=== PATIENT | female | born 1975 | race Caucasian/White ===

== ENCOUNTER 2017-12-13 08:08 | Inpatient (IN) | payer SELFPAY ==
[2017-12-13] MEDS ORDERED: LEVALBUTEROL 1.25 MG/3 ML NEB ONE ×2 (08:45→10:06)
[2017-12-13 08:59] LABS: Absolute Lymphocytes (CBC) 1.6 K/uL (0.7-4.9); Absolute Monocytes 0.6 K/uL (0.1-1.3); Absolute Neutrophil 6.3 K/uL (1.8-8.0); Basophils % 1.3 % (0-1.3); Eosinophils % 1.7 % (0-4.4); Hematocrit 27.4 % (36.0-45.0); Lymphocytes % 18.2 % (15.3-44.8); MCH 20.8 pg (27.0-35.0); MCV 69.1 fL (80-100); MPV 9.1 fL (7.6-11.3); Monocytes % 6.5 % (3.3-12.3); RBC Red Blood Cell Count 3.97 M/uL (3.86-4.86)
[2017-12-13 09:03] LABS: Protime INR 0.94
[2017-12-13 09:10] LABS: Bicarbonate 23 mEq/L (21-31); Glucose Level 92 mg/dL (65-120); Lipase 24 U/L (22-51); Potassium 3.8 mEq/L (3.6-5.0); Sodium Level 136 mEq/L (135-145)
[2017-12-13 09:16] LABS: ALT/SGPT 13 IU/L (10-60); AST/SGOT 18 IU/L (10-42); Albumin 3.6 g/dL (3.2-5.5); Alkaline Phosphatase 51 IU/L (42-121); BUN Blood Urea Nitrogen 9 mg/dL (6-20); Bilirubin Direct < 0.1 mg/dL (0-0.2); Bilirubin Total 0.4 mg/dL (0.3-1.2); Glomerular Filtration Rate > 90 mL/min (=/>90); Protein, Total 6.7 g/dL (6.0-8.3)
[2017-12-13 09:17] LABS: Alcohol Serum/Plasma 38 mg/dl
--- NOTE | 2017-12-13 09:58 | RAD REPORT ---
EXAM DESCRIPTION: RAD - Chest Single View - 12/13/2017 9:13 am CLINICAL HISTORY: Shortness of breath COMPARISON: April 2016 TECHNIQUE: AP portable chest image was obtained 0908 hours . FINDINGS: Lungs are clear. Heart and vasculature are normal. No measurable pleural effusion and no p neumothorax. No gross bony abnormality seen. No acute aortic findings suspected. IMPRESSION: No acute cardiopulmonary process. No significant change from comparison.
--- NOTE | 2017-12-13 10:02 | RAD REPORT ---
EXAM DESCRIPTION: CT - Chest For Pe Angio - 12/13/2017 9:48 am CLINICAL HISTORY: Shortness of breath COMPARISON: Chest films same date TECHNIQUE: Dynamically enhanced 3 mm thick images of the chest were obtained during administration o f approximately 150mL Isovue 370 IV contrast. Coronal and oblique reconstruction images were generate d and reviewed. Exam utilizes a protocol to evaluate the pulmonary arterial tree. All CT scans are performed using dose optimization technique as appropriate and may include automated exposure control or mA/KV adjustment according to patient size. FINDINGS: No pulmonary emboli are identified. The aorta as imaged shows no acute or suspicious finding. No pericardial thickening or effusion. No infiltrate or mass in the lung parenchyma. No pleural effusion or pleural thickening. No mediastinal or hilar suspicious masses. No chest wall masses or abnormal axillary lymphadenopathy. IMPRESSION: No pulmonary emboli identified. No other significant or suspicious findings.
[2017-12-13] MEDS ORDERED: DEXAMETHASONE 10 MG/ML VIAL ONE (10:06)
[2017-12-13] MEDS ORDERED: CEFTRIAXONE/SWI 1gm 2 GM/20 ML SYR ONE (10:06)
[2017-12-13] MEDS ORDERED: Magnesium Sulfate 2gm IVPB 2 G/50 ML BAG IV ONE (10:06)
[2017-12-13] MEDS ORDERED: AZITHROMYCIN 500 MG/250 ML BAG IV SCH (10:15)
[2017-12-13 10:33] LABS: Blood Morphology Comment NOTED (NOT SEEN); Platelet Estimate ADEQ; Urine White Blood Cell Casts OK
[2017-12-13 10:34] LABS: Anisocytosis 2+; Hypochromasia 1+
[2017-12-13] MEDS ORDERED: ACETAMINOPHEN 500 MG TAB ONE (10:40)
[2017-12-13] MEDS ORDERED: ONDANSETRON 4 MG/2 ML VIAL ONE (11:03)
[2017-12-13] MEDS ORDERED: FENTANYL CITR 100 MCG/2 ML ONE (11:06)
--- NOTE | 2017-12-13 11:22 | ER ---
Nurse's Notes [facility] Name: Valery Garner Age: 42 yrs Sex: Female : 1975 Arrival Date: 12/13/2017 Time: 08:12 Bed 5 Private MD: Diagnosis: Acute Shortness of Breath;Cough;Bronchospasm Presentation: 12/13 08:37 Presenting complaint: Patient states: "I've been sick for 2 weeks, had 2 Rocephin jl7 shots, this morning was really short of breath, O2 was 88% so Dr. Houston made me come in. I've also been dizzy for 2 weeks.". Transition of care: patient was not received from another setting of care. Onset of symptoms was December 01, 2017. Care prior to arrival: None. 08:37 Method Of Arrival: Ambulatory jl7 08:37 Acuity: SANJAY 3 jl7 Triage Assessment: 09:00 General: Appears in no apparent distress. uncomfortable, Behavior is calm, cooperative, jl7 appropriate for age. Respiratory: Reports shortness of breath at rest on exertion since 2 weeks Onset: The symptoms/episode began/occurred 2 weeks ago, the patient has moderate shortness of breath. 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 - Social history:: Smoking status: Patient uses tobacco products, smokes one-half pack cigarettes per day. - Family history:: not pertinent. - Hospitalizations: : No recent hospitalization is reported. Screenin:56 Abuse screen: Denies threats or abuse. Denies injuries from another. Nutritional jl7 screening: No deficits noted. Tuberculosis screening: No symptoms or risk factors identified. Fall Risk IV access (20 points). Total Aparicio Fall Scale indicates No Risk (0-24 pts). Assessment: 08:56 General: Appears in no apparent distress. uncomfortable, Behavior is calm, cooperative, jl7 appropriate for age. Pain: Denies pain. Neuro: Level of Consciousness is awake, alert, obeys commands, Oriented to person, place, time, situation, Moves all extremities. Gait is steady, Speech is normal, Facial symmetry appears normal. Cardiovascular: Heart tones S1 S2 present Patient's skin is warm and dry. Rhythm is sinus rhythm. Respiratory: Airway is patent Respiratory effort is even, unlabored, shallow, Respiratory pattern is symmetrical, tachypnea Breath sounds are coarse bilaterally. GI: No signs and/or symptoms were reported involving the gastrointestinal system. : No signs and/or symptoms were reported regarding the genitourinary system. EENT: No signs and/or symptoms were reported regarding the EENT system. Derm: Skin is pink, warm \\T\\ dry. Musculoskeletal: No signs and/or symptoms reported regarding the musculoskeletal system. 10:00 Reassessment: No changes from previously documented assessment. Patient and/or family jl7 updated on plan of care and expected duration. Pain level reassessed. Patient is alert, oriented x 3, equal unlabored respirations, skin warm/dry/pink. 10:35 Reassessment: Pt c/o headache, provider notified, see MAR for orders. jl7 11:00 Reassessment: No changes from previously documented assessment. Pt remains short of jl7 breath at rest, provider notified. Pt c/o of nausea. Provider notified, see MAR for orders. 11:55 Reassessment: Patient and/or family updated on plan of care and expected duration. Pain jl7 level reassessed. Patient is alert, oriented x 3, equal unlabored respirations, skin warm/dry/pink. 12:32 Reassessment: Patient and/or family updated on plan of care and expected duration. Pain sv level reassessed. Patient is alert, oriented x 3, equal unlabored respirations, skin warm/dry/pink. c/o nausea and headache. Medication ordered. Vital Signs: 08:41 BP 132 / 98; Pulse 79; Resp 24 S; Pulse Ox 97% on R/A; Weight 71.67 kg (R); Height 5 jl7 ft. 3 in. (160.02 cm) (R); 08:55 Temp 98.3; jl7 09:14 BP 122 / 79; Pulse 76; Resp 20 S; Pulse Ox 100% on 2 lpm NC; jl7 10:32 BP 136 / 93; Pulse 97; Resp 20 S; Pulse Ox 100% on 2 lpm NC; jl7 11:24 BP 119 / 81; Pulse 97; Resp 18 S; Pulse Ox 100% on 2 lpm NC; jl7 11:56 BP 115 / 83; Pulse 80; Resp 20 S; Pulse Ox 100% on 2 lpm NC; jl7 08:41 Body Mass Index 27.99 (71.67 kg, 160.02 cm) jl7 ED Course: 08:12 Patient arrived in ED. mr 08:26 Bobo Shah MD is Attending Physician. wa 08:36 Madonna Andrews, MARY KATE is Primary Nurse. jl7 08:39 Triage completed. jl7 08:40 Initial lab(s) drawn, by co, sent to lab. Inserted saline lock: 20 gauge in right sv antecubital area, using aseptic technique. Blood collected. Flushed right antecubital with 5 ml normal saline. 08:41 Radiology exam delayed due to lab results not completed at this time. (BUN/Creatinine). nj 08:41 Arm band placed on right wrist. jl7 08:43 Radiology exam delayed due to IV insertion attempt and/or patient not having nj appropriate IV at this time. 08:56 Patient has correct armband on for positive identification. Placed in gown. Bed in low jl7 position. Call light in reach. Side rails up X 1. 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 Pulse ox on. NIBP on. 09:00 EKG done, by ED staff, reviewed by Bobo Shah MD. [facility] 09:13 XRAY CXR (1 view) In Process Unspecified. EDMS 09:21 LAB Add On Sent. sv 09:21 CBC Smear Scan Sent. sv 09:47 CT Chest For PE Angio In Process Unspecified. EDMS 09:47 CT completed. Patient tolerated procedure well. Patient moved back from CT. nj 11:20 Madi York DO is Hospitalizing Provider. wa 12:[address] j 12:22 CT completed. Patient tolerated procedure well. Patient moved back from CT. j 13:07 No provider procedures requiring assistance completed. Patient admitted, IV remains in jl7 place. Administered Medications: 08:54 Drug: Xopenex 1.25 mg Route: Inhalation; jl7 09:16 Follow up: Response: No adverse reaction jl7 10:09 Drug: Xopenex 1.25 mg Route: Inhalation; jl7 10:30 Follow up: Response: No adverse reaction jl7 10:10 Drug: Decadron - Dexamethasone 10 mg Route: IVP; Site: right antecubital; jl7 10:20 Follow up: Response: No adverse reaction jl7 10:13 Drug: Rocephin - (cefTRIAXone) 2 grams Route: IVPB; Infused Over: 4 mins; Site: right jl7 antecubital; 10:17 Follow up: IV Status: Completed infusion jl7 11:57 Follow up: Response: No adverse reaction jl7 10:20 Drug: Magnesium Sulfate 2 grams Route: IVPB; Infused Over: 2 hrs; Site: right jl7 antecubital; 11:58 Follow up: Response: No adverse reaction; IV Status: Completed infusion jl7 10:41 Drug: Zithromax 500 mg Route: IVPB; Infused Over: 1 hrs; Site: right antecubital; jl7 11:57 Follow up: Response: No adverse reaction; IV Status: Completed infusion jl7 10:41 Drug: Tylenol 1000 mg Route: PO; jl7 11:59 Follow up: Response: No adverse reaction; Pain is decreased jl7 11:04 Drug: Zofran 4 mg Route: IVP; Site: right antecubital; jl7 11:59 Follow up: Response: No adverse reaction; Nausea is decreased jl7 11:08 Drug: fentaNYL (PF) 50 mcg Route: IVP; Site: right antecubital; jl7 11:59 Follow up: Response: No adverse reaction jl7 12:34 Drug: NS 0.9% 500 ml Route: IV; Rate: bolus; Site: right antecubital; sv 13:00 Follow up: IV Status: Completed infusion jl7 12:35 Drug: Phenergan 12.5 mg Route: IVP; Site: right antecubital; sv 12:56 Follow up: Response: No adverse reaction jl7 13:00 Follow up: Response: No adverse reaction jl7 12:56 Drug: [place] 5 mg-325 mg 1 tabs Route: PO; jl7 13:00 Follow up: Response: Other; administered prior to admission jl7 Outcome: 11:21 Decision to Hospitalize by Provider. wa 13:07 Admitted to Med/surg accompanied by tech, via wheelchair, room 413, with chart, Report jl7 called to Zina Kaufman, Nurse 13:07 Condition: stable 13:07 Discharge instructions given to patient, Instructed on the need for admit, Demonstrated understanding of instructions. 13:09 Patient left the ED. jl7 Signatures: Dispatcher [employer] Edith Artis RN RN sv Rivera, Maria mr Garcia, Margi león Joseph Carty Maria [facility] Madonna Andrews RN RN jl7 Bobo Shah MD MD wa
--- NOTE | 2017-12-13 11:22 | EDPHYS ---
Physician Documentation [facility] Name: Valery Garner Age: 42 yrs Sex: Female : 1975 Arrival Date: 12/13/2017 Time: 08:12 Bed 5 Private MD: ED Physician Bobo Shah HPI: 12/13 09:45 This 42 yrs old Female presents to ER via Ambulatory with complaints of wa Breathing Difficulty. 09:45 The patient has shortness of breath at rest, "I have had the crud for 2 weeks now I wa can't breath" States cough with sputum and congestion in the chest x 2 weeks. today with difficulty in breathing at work. Sat's 88 %. admits to painful respirations. denies having these same symptoms in the past. smokes 5-6 cigs a day. denies fever. Onset: The symptoms/episode began/occurred today. Duration: The symptoms are continuous, and are steadily getting worse. The patient's shortness of breath is aggravated by coughing, is alleviated by nothing. Associated signs and symptoms: Pertinent positives: chest pain, productive cough, Pertinent negatives: dizziness, fever, vomiting. Severity of symptoms: At their worst the symptoms were severe in the emergency department the symptoms are unchanged. The patient has not experienced similar symptoms in the past. The patient has not recently seen a physician. 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 - Social history:: Smoking status: Patient uses tobacco products, smokes one-half pack cigarettes per day. - Family history:: not pertinent. - Hospitalizations: : No recent hospitalization is reported. ROS: 09:56 Constitutional: Negative for fever, chills, and weight loss, Eyes: Negative for injury, wa pain, redness, and discharge, ENT: Negative for injury, pain, and discharge, Neck: Negative for injury, pain, and swelling, Cardiovascular: Negative for chest pain, palpitations, and edema, Abdomen/GI: Negative for abdominal pain, nausea, vomiting, diarrhea, and constipation, Back: Negative for injury and pain, : Negative for injury, bleeding, discharge, and swelling, MS/Extremity: Negative for injury and deformity, Skin: Negative for injury, rash, and discoloration, Neuro: Negative for headache, weakness, numbness, tingling, and seizure, Psych: Negative for depression, anxiety, suicide ideation, homicidal ideation, and hallucinations. 09:56 Respiratory: Positive for cough, with yellow sputum, shortness of breath, Negative for hemoptysis, orthopnea. 09:56 All other systems are negative. Exam: 09:58 Head/Face: Normocephalic, atraumatic. Eyes: Pupils equal round and reactive to light, wa extra-ocular motions intact. Lids and lashes normal. Conjunctiva and sclera are non-icteric and not injected. Cornea within normal limits. Periorbital areas with no swelling, redness, or edema. ENT: Nares patent. No nasal discharge, no septal abnormalities noted. Tympanic membranes are normal and external auditory canals are clear. Oropharynx with no redness, swelling, or masses, exudates, or evidence of obstruction, uvula midline. Mucous membranes moist. Neck: Trachea midline, no thyromegaly or masses palpated, and no cervical lymphadenopathy. Supple, full range of motion without nuchal rigidity, or vertebral point tenderness. No Meningismus. Chest/axilla: Normal chest wall appearance and motion. Nontender with no deformity. No lesions are appreciated. Cardiovascular: Regular rate and rhythm with a normal S1 and S2. No gallops, murmurs, or rubs. Normal PMI, no JVD. No pulse deficits. Abdomen/GI: Soft, non-tender, with normal bowel sounds. No distension or tympany. No guarding or rebound. No evidence of tenderness throughout. Back: No spinal tenderness. No costovertebral tenderness. Full range of motion. Skin: Warm, dry with normal turgor. Normal color with no rashes, no lesions, and no evidence of cellulitis. MS/ Extremity: Pulses equal, no cyanosis. Neurovascular intact. Full, normal range of motion. Neuro: Awake and alert, GCS 15, oriented to person, place, time, and situation. Cranial nerves II-XII grossly intact. Motor strength 5/5 in all extremities. Sensory grossly intact. Cerebellar exam normal. Normal gait. Psych: Awake, alert, with orientation to person, place and time. Behavior, mood, and affect are within normal limits. 09:58 Constitutional: The patient appears alert, visibly dyspneic 09:58 Respiratory: moderate respiratory distress is noted, Respirations: labored breathing, that is moderate, accessory muscle usage, that is moderate, Breath sounds: scattered coarseness bilaterally, Respiratory rate: elevated Vital Signs: 08:41 BP 132 / 98; Pulse 79; Resp 24 S; Pulse Ox 97% on R/A; Weight 71.67 kg (R); Height 5 jl7 ft. 3 in. (160.02 cm) (R); 08:55 Temp 98.3; jl7 09:14 BP 122 / 79; Pulse 76; Resp 20 S; Pulse Ox 100% on 2 lpm NC; jl7 10:32 BP 136 / 93; Pulse 97; Resp 20 S; Pulse Ox 100% on 2 lpm NC; jl7 11:24 BP 119 / 81; Pulse 97; Resp 18 S; Pulse Ox 100% on 2 lpm NC; jl7 11:56 BP 115 / 83; Pulse 80; Resp 20 S; Pulse Ox 100% on 2 lpm NC; jl7 08:41 Body Mass Index 27.99 (71.67 kg, 160.02 cm) jl7 MDM: 08:26 Patient medically screened. id 10:00 Differential diagnosis: asthma, Bronchitis Chronic Obstructive Pulmonary Disease id pneumonia, pulmonary edema, Pulmonary Embolism reactive airway disease, Unstable Angina. 10:01 Data reviewed: vital signs, nurses notes, lab test result(s), EKG, radiologic studies. id Test interpretation: by ED physician or midlevel provider: labs noted for anemia. CXR: wnl. no infiltrate. EKG: HR 73. wnl. no acute concern for ischemia. ED course: improving at 1000 Hrs: still mildly dyspneic. will give another dose of xopenex. will give MgSO4 IV, decadron and abx. awaiting CT scan results. 10:09 Test interpretation: by ED physician or midlevel provider: CT chest: no acute process. id Special discussion: 1010 hrs: work up essentially negative. will treat as reactive airway dz vs. COPD vs bronchitis. dispo will hinge on reassessment findings.. 11:17 ED course: 1115 hrs: improving. still SOB at rest. will admit for Q4 hr nebs and wa further pulm eval. 12/13 08:39 Order name: BMP; Complete Time: 09:43 id 12/13 08:39 Order name: BNP; Complete Time: 09:43 id 12/13 08:39 Order name: CBC with Diff id 12/13 08:39 Order name: Hepatic Function; Complete Time: 09:43 id 12/13 08:39 Order name: Lipase; Complete Time: 09:43 id 12/13 08:39 Order name: Magnesium; Complete Time: 09:43 id 12/13 08:39 Order name: PT-INR; Complete Time: 09:43 id 12/13 08:39 Order name: Troponin (emerg Dept Use Only); Complete Time: 09:43 id 12/13 08:52 Order name: LAB Add On sv 12/13 08:54 Order name: Alcohol Serum/Plasma; Complete Time: 09:43 [facility] 12/13 09:06 Order name: CBC Smear Scan [facility] 12/13 13:00 Order name: Transferrin Sat/Iron Binding [facility] 12/13 13:00 Order name: Ferritin [facility] 12/13 13:00 Order name: Vitamin B12 Level [facility] 12/13 08:39 Order name: XRAY CXR (1 view); Complete Time: 10:07 id 12/13 08:39 Order name: CT Chest For PE Angio; Complete Time: 10:07 id 12/13 08:39 Order name: EKG; Complete Time: 08:39 id 12/13 12:39 Order name: CT [facility] 12/13 08:39 Order name: Cardiac monitoring; Complete Time: 09:15 id 12/13 08:39 Order name: EKG - Nurse/Tech; Complete Time: 09:00 id 12/13 08:39 Order name: IV Saline Lock; Complete Time: 08:52 id 12/13 08:39 Order name: Labs collected and sent; Complete Time: 08:52 id 12/13 08:39 Order name: O2 Per Protocol; Complete Time: 08:52 id 12/13 08:39 Order name: O2 Sat Monitoring; Complete Time: 08:52 id 12/13 09:56 Order name: Diet Regular; Complete Time: 09:56 iw Administered Medications: 08:54 Drug: Xopenex 1.25 mg Route: Inhalation; jl7 09:16 Follow up: Response: No adverse reaction jl7 10:09 Drug: Xopenex 1.25 mg Route: Inhalation; jl7 10:30 Follow up: Response: No adverse reaction jl7 10:10 Drug: Decadron - Dexamethasone 10 mg Route: IVP; Site: right antecubital; jl7 10:20 Follow up: Response: No adverse reaction jl7 10:13 Drug: Rocephin - (cefTRIAXone) 2 grams Route: IVPB; Infused Over: 4 mins; Site: right jl7 antecubital; 10:17 Follow up: IV Status: Completed infusion jl7 11:57 Follow up: Response: No adverse reaction jl7 10:20 Drug: Magnesium Sulfate 2 grams Route: IVPB; Infused Over: 2 hrs; Site: right jl7 antecubital; 11:58 Follow up: Response: No adverse reaction; IV Status: Completed infusion jl7 10:41 Drug: Zithromax 500 mg Route: IVPB; Infused Over: 1 hrs; Site: right antecubital; jl7 11:57 Follow up: Response: No adverse reaction; IV Status: Completed infusion jl7 10:41 Drug: Tylenol 1000 mg Route: PO; jl7 11:59 Follow up: Response: No adverse reaction; Pain is decreased jl7 11:04 Drug: Zofran 4 mg Route: IVP; Site: right antecubital; jl7 11:59 Follow up: Response: No adverse reaction; Nausea is decreased jl7 11:08 Drug: fentaNYL (PF) 50 mcg Route: IVP; Site: right antecubital; jl7 11:59 Follow up: Response: No adverse reaction jl7 12:34 Drug: NS 0.9% 500 ml Route: IV; Rate: bolus; Site: right antecubital; sv 13:00 Follow up: IV Status: Completed infusion jl7 12:35 Drug: Phenergan 12.5 mg Route: IVP; Site: right antecubital; sv 12:56 Follow up: Response: No adverse reaction jl7 13:00 Follow up: Response: No adverse reaction jl7 12:56 Drug: [place] 5 mg-325 mg 1 tabs Route: PO; jl7 13:00 Follow up: Response: Other; administered prior to admission jl7 Disposition: 11:19 Critical Care:. id Disposition: 12/13/17 11:21 Hospitalization ordered by Madi York for Observation. Preliminary diagnosis are Acute Shortness of Breath, Cough, Bronchospasm. - Bed requested for Telemetry/MedSurg (observation). - Status is Observation. jl7 - Condition is Stable. - Problem is new. - Symptoms have improved. UTI on Admission? No Critical care time excluding procedures: 11:19 Critical care time: Bedside Care: 20 minutes, Consultation: 5 minutes, Family wa Intervention: 5 minutes. Total time: 30 minutes Signatures: Dispatcher [employer] Edith Artis RN RN sv Leal, Jahala, RN RN jl7 Bobo Shah MD MD id Jeovanny Stone [email or web address]
[2017-12-13] MEDS ORDERED: IPRATROPIUM BROM 0.5MG/2.5ML NEB PRN (11:48)
[2017-12-13] MEDS ORDERED: ALBUTEROL 2.5 MG/3 ML NEB SOL NEB PRN (11:48)
[2017-12-13] MEDS ORDERED: LORazepam 2 MG/ML VIAL IV PRN (11:48)
[2017-12-13] MEDS ORDERED: MECLIZINE HCL 12.5 MG TAB PO PRN (11:48)
[2017-12-13] MEDS ORDERED: ONDANSETRON 4 MG/2 ML VIAL IV PRN (11:48)
[2017-12-13] MEDS ORDERED: HYDROCODONE/APAP 5/325 MG TAB ONE (12:28)
[2017-12-13] MEDS ORDERED: NA CHLORIDE 0.9% 500 ML ONE (12:28)
[2017-12-13] MEDS ORDERED: PROMETHAZINE 25 MG/ML VIAL ONE (12:32)
--- NOTE | 2017-12-13 12:38 | RAD REPORT ---
EXAM DESCRIPTION: CT - Head Brain Wo Cont - 12/13/2017 12:22 pm CLINICAL HISTORY: Weakness, dizziness, syncope, CT PE study approximately 2 hours earlier COMPARISON: CT head April 2016 TECHNIQUE: Axial 5 mm thick images of the head were obtained without IV contrast. All CT scans are performed using dose optimization technique as appropriate and may include automated exposure control or mA/KV adjustment according to patient size. FINDINGS: No intracranial hemorrhage, mass, edema or shift of mid-line structures. No acute infarcti on changes seen. No abnormal extra-axial fluid collections. Ventricles are normal. Arterial and physi ologic calcifications are present. Mastoid air cells and visualized portions of the paranasal sinuses are clear. No acute bony findings. IMPRESSION: Negative non-contrast CT head examination for acute finding. No significant change from comparison.
[2017-12-13 13:00] LABS: Ferritin 2.2 ng/ml (11.0-306.8); Transferrin 366 mg/dL (192-382)
[2017-12-13 13:19] LABS: Iron < 7.0 ug/dL (28-170)
--- NOTE | 2017-12-13 13:42 | P.HP ---
Certification for Inpatient Patient admitted to: Observation With expected LOS: <2 Midnights Patient will require the following post-hospital care: None Practitioner: I am a practitioner with admitting privileges, knowledge of patient current condition, hospital course, and medical plan of care. Services: Services provided to patient in accordance with Admission requirements found in Title 42 Section 412.3 of the Code of Federal Regulations Patient History Date of Service: 12/13/17 Primary Care Provider: HANSEL Still Reason for admission: Dizziness, cough, congestion and shortness of breath History of Present Illness: 42-year-old female present emergency room with multiple complaints including dizziness, cough and congestion and shortness of breath. The patient reports that she has been having dizziness over the past 2 weeks. She also reports cough and congestion for the past week. Last week she went to see her PCP. She received 2 doses of Rocephin and IM steroids due to possible bronchitis. She did not improve. She eventually got antibiotics-Augmentin as an outpatient. Since that time she has been having increasing shortness of breath. She reports some dizziness with pain to the left ear. She had some mild nausea. She denies any vomiting. No diarrhea as noted. Some constipation noted. Patient reports a history of anemia, attention deficit disorder and insomnia. She admits to tobacco and alcohol abuse. In the ER the patient was evaluated. The patient was given multiple nebulized treatments with IV steroids. Initial white count 8.8, hemoglobin 8.3. Electrolytes appeared unremarkable. Alcohol level was at 38. CT angiogram showed no pulmonary embolism or infection. Due to the nature the findings and persistent shortness of breath the patient was admitted for observation. When I evaluated the patient in the ER, she appeared dehydrated. She did not appear in any significant respiratory distress. Patient was slightly anxious. Allergies acetaminophen [From [facility]] Allergy (Severe, Verified 04/18/16 19:18) chest pain hydrocodone [From [facility]] Allergy (Severe, Verified 04/18/16 19:18) chest pain morphine Allergy (Severe, Verified 04/18/16 19:17) chest pain No Known Allergies Allergy (Uncoded 12/13/17 13:12) Unknown Home medications list reviewed: Yes Home Medications: Dextroamphetamine/Amphetamine [Adderall 20 mg Tablet] 20 mg PO TID 04/18/16 Alprazolam [Alprazolam] 1 tab PO BEDTIME 12/13/17 - Past Medical/Surgical History Diabetic: No -: Anemia, iron deficiency -: Anxiety disorder -: Tobacco abuse -: Alcohol abuse -: History gastric bypass -: Attention deficit disorder -: Insomnia -: Gastric bypass -: Breast reduction -: C-sections x2 -: Cholecystectomy -: Repair for intussipation and volvulus -: Kandice pereira Psychosocial/ Personal History: The patient is . She has 2 children. 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 - Family History Family History: Reviewed- Non-Contributory - Social History Smoking Status: Light Tobacco smoker (1-9 cigarettes/day) Counseled patient to stop smoking for: less than 10 minutes Smoking therapy provided: Yes Patient receptive to therapy: Yes Alcohol use: Yes CD- Drugs: No Caffeine use: Yes Place of Residence: Home Review of Systems General: Weakness, Malaise, As per HPI Eyes: Unremarkable ENT: Ear Pain, Nose Congestion, As per HPI Respiratory: Shortness of Breath, Wheezing, As per HPI Cardiovascular: Light Headedness, As per HPI Gastrointestinal: Nausea, Constipation, As per HPI Genitourinary: Unremarkable Musculoskeletal: Unremarkable Integumentary: Unremarkable Neurological: As per HPI Lymphatics: Unremarkable Physical Examination - Vital Signs Temperature: 98.3 F Blood Pressure: 115/83 Pulse: 80 Respirations: 20 - Physical Exam General: Alert, In no apparent distress, Oriented x3, Cooperative, Other ( Increased anxiety noted) HEENT: Atraumatic, Normocephalic, PERRLA, Other (Dry mucous membranes) Neck: Supple, No Thyromegaly Respiratory: Expiratory wheezes (Minimal crackles to the bases) Cardiovascular: Normal pulses, Regular rate/rhythm Gastrointestinal: Normal bowel sounds, Soft and benign, Non-distended, No ascites, No tenderness, No masses, No rebound, No guarding Musculoskeletal: No contractures, No erythema, No tenderness, No warmth Integumentary: No tenderness/swelling, No erythema, No warmth, No cyanosis Neurological: Normal speech, Normal strength at 5/5 x4 extr, Normal tone, Normal affect Lymphatics: No axilla or inguinal lymphadenopathy - Studies Laboratory Data (last 24 hrs) 12/13/17 08:45: PT 11.1, INR 0.94 12/13/17 08:45: WBC 8.8, Hgb 8.3 L, Hct 27.4 L, Plt Count 238 12/13/17 08:45: B-Natriuretic Peptide 32 12/13/17 08:45: Sodium 136, Potassium 3.8, BUN 9, Creatinine 0.55, Glucose 92, Magnesium 2.0, Total Bilirubin 0.4, AST 18, ALT 13, Alkaline Phosphatase 51, Lipase 24 Assessment and Plan - Problems (Diagnosis) (1) Shortness of breath Current Visit: Yes Status: Acute Plan: Shortness of breath likely related to underlying COPD with bronchitis. Possible with atypical infection. Will start Zithromax. Will continue with IV steroids and COPD medication. Tobacco cessation will be addressed in detail. Sputum culture obtained. Alcohol level was elevated. Will need to further address alcohol and tobacco cessation. Will check urine drug screen. Patient with anemia. Will replace with iron and B12 supplementation. (2) COPD (chronic obstructive pulmonary disease) Current Visit: Yes Status: Acute Plan: Patient likely has underlying COPD due to history of tobacco use. Tobacco cessation addressed. Will continue with COPD treatment. Patient likely with underlying atypical infection. Will provide Zithromax. Qualifiers: COPD type: COPD with acute exacerbation Qualified Code(s): J44.1 - Chronic obstructive pulmonary disease with (acute) exacerbation (3) Alcohol abuse Current Visit: Yes Status: Chronic Plan: Alcohol level elevated. Patient admits to alcohol abuse. Will teach on cessation. Will check urine drug screen (4) Tobacco abuse Current Visit: Yes Status: Chronic Plan: Tobacco cessation addressed in detail (5) Anxiety Current Visit: Yes Status: Acute Plan: Patient with increased anxiety. She is taking alprazolam as an outpatient. This should be weaned off as an outpatient over time. Patient may require psychiatric evaluation as an outpatient. (6) Anemia Onset Date: 04/19/16 Current Visit: No Status: Chronic Plan: Patient with chronic iron deficiency and B12 anemia. Will start iron supplementation and B12 supplementation. Patient with history of gastric bypass. Will start PPI b.i.d.. Will monitor hemoglobin closely. No need to transfuse unless hemoglobin below 7.0. Qualifiers: Anemia type: iron deficiency Iron deficiency anemia type: inadequate dietary iron intake Qualified Code(s): D50.8 - Other iron deficiency anemias (7) Dizziness Onset Date: 04/19/16 Current Visit: No Status: Acute Plan: Dizziness likely related to dehydration, alcohol abuse and anemia. Will continue with IV fluids. (8) Dehydration Current Visit: Yes Status: Acute Plan: Continue with IV fluids. Discharge Plan: Home Plan to discharge in: 24 Hours - Advance Directives Does patient have a Living Will: No Does patient have a Durable POA for Healthcare: No - Code Status/Comfort Care Code Status Assessed: Yes Time Spent Managing Pts Care (In Minutes): 55
[2017-12-13] MEDS: NA CHLORIDE 0.9% 1,000 ML IV SCH ×2 (13:49→22:00)
[2017-12-13 14:24] VITALS: BMI 28.0
[2017-12-13] MEDS ORDERED: CYANOCOBALAMIN 1000MCG/ML INJ IM SCH (15:00)
[2017-12-13 16:13] LABS: Barbiturates NEGATIVE; Benzodiazepines NEGATIVE; Cocaine NEGATIVE; METHAMPHETAM POSITIVE; Opiates NEGATIVE; Phencyclidine NEGATIVE; THC Cannibis NEGATIVE
[2017-12-13 16:26] LABS: Urine Appearance CLEAR; Urine Bilirubin NEGATIVE (NEG); Urine Blood 3+ (NEG); Urine Color YELLOW; Urine Glucose NEGATIVE (NEG); Urine Protein NEGATIVE (NEG); Urine Specific Gravity >=1.030 (1.005-1.030)
[2017-12-13 16:29] LABS: Urine Microscopic Reflex ORDER UMIC
[2017-12-13 16:31] LABS: Specific Gravity >= 1.030 (1.005-1.030)
[2017-12-13] MEDS: TRAMADOL HCL 50 MG TAB PO PRN ×2 (16:56→23:12)
[2017-12-13] MEDS: METHYLPREDNISOLONE 40 MG INJ IV SCH (16:56)
[2017-12-13] MEDS: ENOXAPARIN 40 MG/0.4 ML SQ SCH (16:57)
[2017-12-13] MEDS: PANTOPRAZOLE 40MG TABLET PO SCH (16:57)
[2017-12-13 17:12] LABS: Urine Bacteria NONE SEEN /HPF (<20); Urine Culture Reflex Order NOT NEEDED; Urine RBC <5 /HPF (NONE SEEN)
[2017-12-13] MEDS: SOD FERRIC GLUC COMPLX/SUCROSE 125 MG in NA CHLORIDE 0.9% 100 ML IV SCH (18:11)
[2017-12-13] MEDS: ARFORMOTEROL TARTRATE 15 MCG/2 ML VIAL.NEB NEB SCH ×2 (18:20→19:39)
[2017-12-13] MEDS ORDERED: ACETAMINOPHEN 500 MG TAB PO ONE (19:18)
[2017-12-13] MEDS: ALPRAZOLAM 1 MG TABLET PO SCH (19:44)
[2017-12-14] MEDS: METHYLPREDNISOLONE 40 MG INJ IV SCH ×3 (01:26→16:52)
[2017-12-14] MEDS: NA CHLORIDE 0.9% 1,000 ML IV SCH ×3 (01:35→17:34)
[2017-12-14] MEDS: KETOROLAC 30 MG/ML INJ IV PRN ×3 (02:02→18:24)
[2017-12-14 07:12] LABS: Absolute Lymphocytes (CBC) 0.6 K/uL (0.7-4.9); Absolute Monocytes 0.3 K/uL (0.1-1.3); Absolute Neutrophil 14.1 K/uL (1.8-8.0); Basophils % 0.1 % (0-1.3); Hematocrit 25.2 % (36.0-45.0); Lymphocytes % 3.9 % (15.3-44.8); MCH 20.7 pg (27.0-35.0); MPV 9.8 fL (7.6-11.3); Monocytes % 1.8 % (3.3-12.3); RBC Red Blood Cell Count 3.66 M/uL (3.86-4.86)
[2017-12-14] MEDS: ARFORMOTEROL TARTRATE 15 MCG/2 ML VIAL.NEB NEB SCH ×2 (07:13→19:58)
--- NOTE | 2017-12-14 07:19 | RAD REPORT ---
EXAM DESCRIPTION: RAD - Chest Pa And Lat (2 Views) - 12/14/2017 6:40 am CLINICAL HISTORY: Bronchitis, cough, shortness of breath COMPARISON: December 13 TECHNIQUE: PA and lateral views of the chest were obtained. FINDINGS: The lungs are clear. Heart size is normal and central vasculature is within normal limit s. No pleural effusion or pneumothorax seen. No acute bony finding noted. No aortic abnormality. IMPRESSION: No acute cardiopulmonary process. No new or progressive finding from comparison.
[2017-12-14 07:26] LABS: BUN Blood Urea Nitrogen 7 mg/dL (6-20); Bicarbonate 23 mEq/L (21-31); Glomerular Filtration Rate > 90 mL/min (=/>90); Glucose Level 130 mg/dL (65-120); Magnesium 2.5 mg/dL (1.8-2.5); Potassium 4.6 mEq/L (3.6-5.0); Sodium Level 137 mEq/L (135-145); Thyroid Stimulating Hormone 0.32 uIU/mL (0.34-5.60)
[2017-12-14] MEDS: PANTOPRAZOLE 40MG TABLET PO SCH ×2 (08:09→16:44)
[2017-12-14] MEDS: THIAMINE HCL 100 MG TABLET PO SCH (08:09)
[2017-12-14] MEDS: FOLIC ACID 1 MG TABLET PO SCH (08:09)
[2017-12-14] MEDS: AZITHROMYCIN IV 250 MG in NA CHLORIDE 0.9% 250 ML IVPB SCH (08:10)
[2017-12-14] MEDS ORDERED: CEFTRIAXONE 1 GM/NS 50 ML 1 GM/50 ML BAG IV SCH (09:00)
[2017-12-14] MEDS ORDERED: CEFTRIAXONE/SWI 1gm 1 GM/10 ML SYR IV SCH (09:00)
[2017-12-14 10:01] LABS: Blood Morphology Comment NOTED (NOT SEEN); Hypochromasia 1+; Platelet Estimate ADEQ; Urine White Blood Cell Casts OK
[2017-12-14] MEDS ORDERED: BENZONATATE 100 MG CAP PO PRN (10:08)
[2017-12-14] MEDS: POLYETHYL GLY 3350 17 GM/DOSE PO SCH (10:28)
[2017-12-14] MEDS: TRAMADOL HCL 50 MG TAB PO PRN (11:32)
[2017-12-14 12:32] LABS: Hematocrit 26.9 % (36.0-45.0)
[2017-12-14] MEDS ORDERED: MORPHINE 4 MG/ML SYR IV ONE (13:11)
[2017-12-14] MEDS ORDERED: ALPRAZOLAM 1 MG TABLET PO ONE (13:53)
--- NOTE | 2017-12-14 14:03 | PN ---
Subjective: The patient is seen and examined. Chart reviewed and case discussed with RN. The patie nt states that she is still very short of breath, fatigued, has no energy. Denies any blood in her s tool. Case discussed with Dr. Del Toro. No intervention at this time. Review of Systems: Negative except as above. Medications: Reviewed. Physical Examination: Vital Signs: Temperature 97.8, heart rate 80, blood pressure 113/74, respirations 16, and O2 97% on room air. General: Awake, alert, oriented x3, not in any acute distress. Slightly ill-appearing female. CV: S1 and S2. No murmurs. Peripheral pulses present bilaterally. Respiratory: Clear to auscultation bilaterally. No wheezing. Gastrointestinal: Abdomen is soft, nontender, nondistended. Positive bowel sounds. Extremities: No clubbing, cyanosis, edema. Neurologic: Nonfocal. Laboratory Data: Sodium 137, potassium 4.6, chloride 110, CO2 of 23, BUN 7, creatinine 0.47, glucose 130, calcium 8.8, magnesium 2.5. WBC 15, H and H 7.6 and 25.2, platelets 210, neutrophils 94%. Assessment And Plan: A 42-year-old female with: 1.Acute dyspnea actually related to chronic obstructive pulmonary disease with bronchitis, possible atypical infection. The patient will continue with Zithromax, IV steroids and breathing treatments. 2.Chronic obstructive pulmonary disease with acute exacerbation. We will continue steroids and nebu lizer treatments. Counseled regarding smoking. 3.Nicotine dependence with cigarette smoking, counseled. 4.Alcohol abuse. Alcohol level elevated. We will continue with education regarding long-term side effects. UDS positive for amphetamines. The patient does take Adderall. 5.Generalized anxiety disorder. The patient will require psych evaluation as an outpatient. Sugges t weaning off alprazolam. 6.Iron deficiency anemia. We will continue with IV iron infusion. We will repeat H and H and check Hemoccult if less than 7, transfuse. 7.Dizziness secondary to anemia. 8.Acute dehydration. Continue IV fluids. 9.History of peptic ulcer disease with previous history of GI bleeds. 10.Arrhythmia. Cardiology on the case. We will monitor electrolytes. Echocardiogram has been orde red. 11.Gastrointestinal and deep venous thrombosis prophylaxis, PPI and SCDs. SA/MODL Voice ID: [id number] Report ID: [id number]
[2017-12-14] MEDS ORDERED: MAGNESIUM CITRATE 300 ML BOT PO SCH (16:00)
[2017-12-14] MEDS ORDERED: GOLYTELY 4000 ML PO SCH (16:00)
[2017-12-14 16:01] LABS: CKMB Creatine Kinase MB 1.1 ng/ml (0.3-4.0)
[2017-12-14] MEDS: ENOXAPARIN 40 MG/0.4 ML SQ SCH (16:49)
[2017-12-14] MEDS: SOD FERRIC GLUC COMPLX/SUCROSE 125 MG in NA CHLORIDE 0.9% 100 ML IV SCH (17:19)
[2017-12-14] MEDS ORDERED: SODIUM CHLORIDE 0.9% 10ML INJ IV PRN (17:44)
--- NOTE | 2017-12-14 18:27 | CON ---
Date of Consultation: 12/14/2017 The patient is admitted to Dr. Spangler's service on 2d018. I saw the patient on 12/14/2017. Reason For Consultation: Shortness of breath. History Of Present Illness: Ms. Garenr is a 42-year-old woman, who has no past cardiac history. Marco A carcamo has had a history of peptic ulcer disease with anemia before, treated with IV iron at [facility]. That was a few years ago. Recently, over the last 3 months she has noticed some mid epigastric discomfort. Did become short of breath. Has had some cough for 2 weeks and came int o the hospital, was found to have a hemoglobin of 7.6. Her white count was 15,000. She had a negati ve workup including chest x-ray, EKG, CT angiogram, and CT of her head. Her CPKs, MBs, and troponin were negative. Past Medical History: Positive for anxiety, history of peptic ulcer disease, history of gastric bypa ss, history of breast augmentation, history of stomach tummy tuck and history of . Allergies: NONE. Medications: At home include Xanax and Adderall. Review of Systems: Negative. Social History: Negative for tobacco. 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 She was afebrile. HEENT: Negative. Neck: Supple. No bruit. Chest: Clear. Cardiac: Normal. Abdomen: Benign. Extremities: Revealed no clubbing, cyanosis, or edema. Diagnostic Data: As stated earlier. Echocardiogram, which was done yesterday was normal. Impression And Plan: 1.Dyspnea on exertion secondary to anemia. 2.Possible peptic ulcer disease with bleeding with a hemoglobin of 7.6. White count elevation is se condary to anemia. 3.Anxiety. 4.Ms. Garner does not need a cardiac workup. She is cleared to undergo endoscopy if that is what t he plan is. She needs to be probably transfused and placed on proton pump inhibitors. She can go ho me whenever it is okay with Dr. Spangler. The case was discussed with Dr. Spangler. NELI/MONA Voice ID: [id number] Report ID: [id number]
[2017-12-14] MEDS: chlordiazePOXIDE HCl 5 MG CAP PO SCH (20:44)
[2017-12-14] MEDS: DOCUSATE NA 100 MG CAP PO SCH (20:45)
[2017-12-14] MEDS: METOCLOPRAMIDE 10 MG/2mL INJ IV SCH (20:45)
[2017-12-14] MEDS: PANTOPRAZOLE 40 MG INJ IVP SCH (20:46)
[2017-12-14] MEDS ORDERED: NA CHLORIDE 0.9% 100 ML ONE (22:10)
[2017-12-14] MEDS: ALPRAZOLAM 1 MG TABLET PO SCH (22:31)
[2017-12-15] MEDS: METHYLPREDNISOLONE 40 MG INJ IV SCH ×3 (00:58→17:42)
[2017-12-15] MEDS: KETOROLAC 30 MG/ML INJ IV PRN ×2 (03:43→11:51)
[2017-12-15] MEDS: NA CHLORIDE 0.9% 1,000 ML IV SCH ×3 (04:00→22:48)
[2017-12-15 06:00] LABS: BUN Blood Urea Nitrogen 8 mg/dL (6-20); Bicarbonate 26 mEq/L (21-31); Glomerular Filtration Rate > 90 mL/min (=/>90); Glucose Level 109 mg/dL (65-120); Magnesium 2.5 mg/dL (1.8-2.5); Potassium 4.3 mEq/L (3.6-5.0); Sodium Level 139 mEq/L (135-145)
[2017-12-15 06:40] LABS: Absolute Lymphocytes (CBC) 0.6 K/uL (0.7-4.9); Absolute Monocytes 0.3 K/uL (0.1-1.3); Absolute Neutrophil 18.6 K/uL (1.8-8.0); Hematocrit 29.6 % (36.0-45.0); Lymphocytes % 3.2 % (15.3-44.8); MCH 21.9 pg (27.0-35.0); MPV 10.2 fL (7.6-11.3); Monocytes % 1.4 % (3.3-12.3); RBC Red Blood Cell Count 4.23 M/uL (3.86-4.86)
[2017-12-15] MEDS ORDERED: Ringers Lactate 1,000 ML IV ONE (07:09)
[2017-12-15] MEDS: ARFORMOTEROL TARTRATE 15 MCG/2 ML VIAL.NEB NEB SCH ×2 (08:00→20:10)
[2017-12-15] MEDS ORDERED: PROPOFOL 200 MG/20 ML VIAL IV ONE ×2 (08:18→08:40)
[2017-12-15] MEDS: METOCLOPRAMIDE 10 MG/2mL INJ IV SCH ×4 (09:00→17:41)
[2017-12-15] MEDS: AZITHROMYCIN IV 250 MG in NA CHLORIDE 0.9% 250 ML IVPB SCH (09:00)
[2017-12-15 09:02] LABS: Platelet Estimate ADEQ; Platelets, Giant PRESENT; Urine White Blood Cell Casts OK
[2017-12-15 09:03] LABS: Anisocytosis 1+; Blood Morphology Comment NOTED (NOT SEEN); Hypochromasia 1+
--- NOTE | 2017-12-15 09:20 | ENDO RPT ---
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 TOPICAL ANESTHETIC: none CONSENT: The patient understands the risks and benefits of the procedure and understands that these risks include, but are not limited to: sedation, allergic reaction, infection, perforation and/or bleeding. Alternative means of evaluation and treatment include, among others: physical exam, x-rays, and/or surgical intervention. The patient elects to proceed with this endoscopic procedure. DESCRIPTION OF PROCEDURE: During intra-op preparation period all mechanical medical equipment was checked for proper function. Hand hygiene and appropriate measures for infection prevention was taken. Procedure, possible complications, and alternatives including but not limited to the possibility of bleeding, perforation, tear, infection, sepsis, need for surgery, need for blood transfusion, and anesthesia related complications were explained to the patient. After the risks, benefits and alternatives of the procedure were thoroughly explained, Informed consent was verified, confirmed and timeout was successfully executed by the treatment team. The patient was placed in the left lateral position. The patient was anesthetized with topical anesthesia. Through the anesthetized oropharyngeal area, the scope was passed without any difficulty. The Pentax [id number] ([id number]) endoscope was introduced through the mouth and advanced to the mid jejunum. Retroflexion was not performed. The gastroscope was then slowly withdrawn and removed. Anastomosis was noted in the fundus. Mild gastritis was found in the fundus. Multiple biopsies were obtained and sent to pathology. An ulcer was found in the fundus. No active bleeding nor old blood noted. ADVERSE EVENTS: There were no complications. IMPRESSIONS: 1. Anastomosis in the fundus 2. Mild gastritis in the fundus, s/p biopsy 3. 1 cm deep clean-based ulcer in the fundus at the edge of the fundus, s/p endoclip closure 4. Small bowel biopsies obtained with history of iron deficiency anemia 5. No active bleeding nor old blood noted RECOMMENDATIONS: 1. await biopsy results 2. acid suppression therapy REPEAT EXAM: Bobo Palomares Dr eSigned: Bobo Palomares Dr 12/15/2017 9:20 AM cc: Madi York CPT CODES: ICD9 CODES: PATIENT NAME: Valery Garner MR#: [id number]
[2017-12-15] MEDS ORDERED: MIDAZOLAM HCL 2 MG/2 ML INJ ONE (09:26)
--- NOTE | 2017-12-15 09:45 | ENDO RPT ---
[address], [address] COLONOSCOPY PROCEDURE REPORT EXAM DATE: 12/15/2017 PATIENT NAME: Valery Garner MR #: [id number] BIRTHDATE: 1975 ATTENDING: Bobo Palomares Dr STATUS: inpatient - [facility] TRANSFER OPERATOR: Kristen Cochran RN, Brandi Page RN, and Rima Hoyt INDICATIONS: The patient is a 42 yr old Female here for a colonoscopy due to iron deficiency anemia, personal history of colon polyps, and family history of colon polyps PROCEDURE PERFORMED: Colonoscopy MEDICATIONS: Per Anesthesia. ESTIMATED BLOOD LOSS: None CONSENT: The patient understands the risks and benefits of the procedure and understands that these risks include, but are not limited to: sedation, allergic reaction, infection, perforation and/or bleeding. Alternative means of evaluation and treatment include, among others: physical exam, x-rays, and/or surgical intervention. The patient elects to proceed with this endoscopic procedure. DESCRIPTION OF PROCEDURE: During intra-op preparation period all mechanical medical equipment was checked for proper function. Hand hygiene and appropriate measures for infection prevention was taken. Procedure, possible complications, alternatives including, but not limited to possibility of bleeding, perforation, tear, infection, sepsis, need for surgery, need for blood transfusion, were explained to the patient. After the risks, benefits and alternatives of the procedure were thoroughly explained, Informed consent was verified, confirmed and timeout was successfully executed by the treatment team. The patient was placed in the left lateral position. A digital rectal exam was performed and revealed no abnormalities of the rectum. After appropriate level of anesthesia, the scope was passed. The [id number] ([id number]) endoscope was introduced through the anus and advanced to the cecum. The quality of the prep was poor. The instrument was then slowly withdrawn as the colon was fully examined. Scope withdrawal time was 8 minutes. COLON FINDINGS: A sessile polyp measuring 7 mm in size was found in the ascending colon. Small internal hemorrhoids were found. Retroflexed views revealed small hemorrhoids. The scope was then completely withdrawn from the patient and the procedure terminated. ADVERSE EVENTS: There were no complications. IMPRESSIONS: 1. 7 mm sessile polyp in the ascending colon 2. Small internal hemorrhoids 3. Intubation to cecum 4. Poor prep throughout the colon RECOMMENDATIONS: fiber rich diet RECALL: Return in 1 day(s) for Colonoscopy. Bobo Palomares Dr eSigned: Bobo Palomares Dr 12/15/2017 9:44 AM cc: Madi York CPT CODES: ICD9 CODES: 211.3 Benign neoplasm of colon PATIENT NAME: Valery Garner MR#: [id number]
--- NOTE | 2017-12-15 11:32 | P.PN ---
Subjective Date of Service: 12/15/17 Primary Care Provider: HANSEL Still Chief Complaint: Cough congestion shortness of breath Subjective: Improving (Patient is improving she has been sick for about 2 weeks complaining of cough and congestion recent EGD showed an ulcer in the stomach repeat colonoscopy tomorrow) Review of Systems Respiratory: Cough, Shortness of Breath Physical Examination - Vital Signs Temperature: 97.1 F Blood Pressure: 144/95 Pulse: 65 Respirations: 18 Pulse Ox (%): 97 - Physical Exam General: Alert, Oriented x3 HEENT: Atraumatic Neck: Supple Respiratory: Expiratory wheezes Cardiovascular: No edema, Normal S1 S2 Assessment & Plan - Problems (Diagnosis) (1) Anemia Current Visit: Yes Status: Acute Plan: Patient a half was admitted with anemia she does have a peptic ulcer probably secondary to the nonsteroidals that she has been taking scheduled to have a colonoscopy again tomorrow patient was transfused 2 units Qualifiers: Iron deficiency anemia type: chronic blood loss (2) Shortness of breath Current Visit: Yes Status: Acute Plan: Patient was complaining of some shortness of breath cough and congestion for the past [address] angiogram is negative chest x-ray is clear continue with bronchodilators room-air saturation satisfactory white count mildly elevated was normal on admission no evidence of active sepsis white count is probably from high dose steroids I have cut down the dose Dc Zithromax
[2017-12-15] MEDS: POLYETHYL GLY 3350 17 GM/DOSE PO SCH (11:50)
[2017-12-15] MEDS: PANTOPRAZOLE 40 MG INJ IVP SCH ×2 (11:50→20:29)
[2017-12-15] MEDS: chlordiazePOXIDE HCl 5 MG CAP PO SCH ×3 (11:50→20:30)
[2017-12-15] MEDS: THIAMINE HCL 100 MG TABLET PO SCH (11:51)
[2017-12-15] MEDS: DOCUSATE NA 100 MG CAP PO SCH ×2 (11:51→21:00)
[2017-12-15] MEDS: FOLIC ACID 1 MG TABLET PO SCH (11:51)
[2017-12-15] MEDS ORDERED: MAGNESIUM CITRATE 300 ML BOT PO SCH (13:00)
[2017-12-15] MEDS ORDERED: GOLYTELY 4000 ML PO SCH (14:00)
[2017-12-15] MEDS: SOD FERRIC GLUC COMPLX/SUCROSE 125 MG in NA CHLORIDE 0.9% 100 ML IV SCH (17:41)
[2017-12-15] MEDS: MIDAZOLAM HCL 2 MG/2 ML INJ IV PRN (18:43)
[2017-12-15] MEDS: ALPRAZOLAM 1 MG TABLET PO SCH (21:21)
--- NOTE | 2017-12-15 22:42 | EKG ---
Test Date: 2017-12-13 Test Time: 16:01:54 Ball Shagger: ARTEMIO MEASUREMENT RESULTS: Intervals: Rate: 85 DC: 132 QRSD: 78 QT: 374 QTc: 445 [place]: P: -86 DC: 132 QRS: 97 T: 63 INTERPRETIVE STATEMENTS: Unusual P axis and short DC, low atrial or junctional rhythm Rightward axis Abnormal ECG No previous ECG available for comparison Electronically Signed On 12-15-17 22:42:05 CDT by Ozzy Smalls
--- NOTE | 2017-12-15 22:45 | EKG ---
Test Date: 2017-12-13 Test Time: 08:56:24 Systems Integrator: CHELSI MEASUREMENT RESULTS: Intervals: Rate: 73 MD: 118 QRSD: 82 QT: 402 QTc: 442 [place]: P: 86 MD: 118 QRS: 47 T: 46 INTERPRETIVE STATEMENTS: Normal sinus rhythm with sinus arrhythmia Normal ECG No previous ECG available for comparison Electronically Signed On 12-15-17 22:44:01 CDT by Ozzy Smalls
[2017-12-16] MEDS: METHYLPREDNISOLONE 40 MG INJ IV SCH ×3 (00:55→17:00)
[2017-12-16] MEDS: MIDAZOLAM HCL 2 MG/2 ML INJ IV PRN ×3 (00:56→08:48)
[2017-12-16 03:28] LABS: HBsAG Nonreactive (Nonreactive); Hepatitis A IgM Antibody Nonreactive
[2017-12-16 06:09] LABS: Absolute Lymphocytes (CBC) 1.2 K/uL (0.7-4.9); Absolute Monocytes 0.4 K/uL (0.1-1.3); Absolute Neutrophil 12.5 K/uL (1.8-8.0); Basophils % 0.1 % (0-1.3); Lymphocytes % 8.5 % (15.3-44.8); MCH 21.6 pg (27.0-35.0); MCV 72.2 fL (80-100); Monocytes % 3.1 % (3.3-12.3); RBC Red Blood Cell Count 4.84 M/uL (3.86-4.86)
[2017-12-16 06:53] LABS: BUN Blood Urea Nitrogen 5 mg/dL (6-20); Bicarbonate 26 mEq/L (21-31); Folic Acid, (Folate) 11.8 ng/ml (>5.21); Glomerular Filtration Rate > 90 mL/min (=/>90); Glucose Level 101 mg/dL (65-120); Magnesium 2.2 mg/dL (1.8-2.5); Potassium 4.2 mEq/L (3.6-5.0); Sodium Level 138 mEq/L (135-145)
--- NOTE | 2017-12-16 07:39 | ECHO ---
HEIGHT: 5 ft 3 in WEIGHT: 158 lb 0 oz DATE OF STUDY: 12/13/[address]: Madi York DO 2-DIMENSIONAL: YES M.MODE: YES DOPPLER: YES COLOR FLOW: YES TDS: NO PORTABLE: NO DEFINITY: NO BUBBLE STUDY: NO DIAGNOSIS: SHORTNESS OF BREATH CARDIAC HISTORY: CATHERIZATION: NO SURGERY: NO PROSTHETIC VALVE: NO PACEMAKER: NO MEASUREMENTS (cm) DIASTOLIC (NORMALS) SYSTOLIC (NORMALS) IVSd 0.8 (0.6-1.2) LA Diam 2.9 (1.9-4.0) LVEF 78% LVIDd 4.5 (3.5-5.7) LVIDs 2.4 (2.0-3.5) %FS 46% LVPWd 0.9 (0.6-1.2) Ao Diam 2.9 (2.0-3.7) 2 DIMENSIONAL ASSESSMENT: RIGHT ATRIUM: NORMAL LEFT ATRIUM: NORMAL RIGHT VENTRICLE: NORMAL LEFT VENTRICLE: NORMAL TRICUSPID VALVE: NORMAL MITRAL VALVE: NORMAL PULMONIC VALVE: NORMAL AORTIC VALVE: NORMAL PERICARDIAL EFFUSION: NONE AORTIC ROOT: NORMAL LEFT VENTRICULAR WALL MOTION: NORMAL DOPPLER/COLOR FLOW: NORMAL COMMENTS: NORMAL 2D ECHOCARDIOGRAM WITH DOPPLER. NO MITRAL VALVE PROLAPSE. NO WALL MOTION ABNORMALITY. TECHNOLOGIST: Vlad SWANN
[2017-12-16] MEDS: PANTOPRAZOLE 40 MG INJ IVP SCH (08:17)
[2017-12-16] MEDS: ARFORMOTEROL TARTRATE 15 MCG/2 ML VIAL.NEB NEB SCH (08:18)
[2017-12-16] MEDS: POLYETHYL GLY 3350 17 GM/DOSE PO SCH (09:00)
[2017-12-16] MEDS: DOCUSATE NA 100 MG CAP PO SCH (09:00)
[2017-12-16] MEDS: chlordiazePOXIDE HCl 5 MG CAP PO SCH ×2 (09:00→12:44)
--- NOTE | 2017-12-16 09:38 | CON ---
Date of Consultation: 12/14/2017 Reason For Consultation: Iron deficiency anemia with hemoglobin of 7.6, MCV of 69, ferritin of 2.2, iron saturation too low to detect with midepigastric pain, and history of colon polyps and family his tory of colon cancer. History Of Present Illness: The patient is a 42-year-old white female, who presented to hospital due to shortness of breath with low O2 saturation of 84% as an outpatient with dizziness and chronic cou gh over the past few weeks. The patient has received 2-week doses of IM Rocephin and IM steroids for presumed diagnosis of bronchitis. Chest x-ray in the hospital has been negative. She appears got s ome possible Augmentin and antibiotics as an outpatient as well and had increasing shortness of breat h. Admitted to the hospital. Initial hemoglobin was 8.3, now down to 7.6. The patient denies any m renea, hematochezia, hematuria, dysuria, polydipsia, and CT of chest was negative. Past Medical History: Significant for iron deficiency anemia, anxiety disorder, tobacco abuse, alcoh ol abuse, gastric bypass, attention deficit disorder, insomnia, breast reduction, x2, fariha cystectomy, repair of intussusception and volvulus and tummy tuck. Social History: She is , 2 children. Positive for tobacco and positive for alcohol. The pat ient reports also taking NyQuil recently. Alcohol, she drinks beer and whiskey Krill oil. She drink s anywhere from 4 to 8 beers 3-4 times a week. Review of Systems: The patient has shortness of breath, chronic cough, midepigastric pain that radiates to her back, deh ydration with increased thirst, history of colon polyps, shortness of breath. She denies any signifi cant chest pain. No seizure, syncope, lower extremity edema, paresthesias, muscle aches, joint aches , backaches. She does have a little bit of decreased mood at times, she reports. She denies any sushil riya hematochezia, hematemesis, coffee-grounds emesis, hematuria, dysuria, polyuria, polydipsia, lower extremity edema. No hemoptysis. Physical Examination: Vital Signs: She is 5 feet 3 inches, 158 pounds, BMI of 28 kg/m2. She has . Laboratory Data: She had a sodium 137, potassium 4.6, chloride 110, bicarb 23, BUN is 7, creatinine of 0.5, glucose of 130, calcium 8.8, magnesium 2.5. Iron of less than 7, TIBC of 512, iron saturatio n too low to calculate, ferritin 2.2, total bili 0.4, direct bili less than 0.1, AST of 18, ALT of 13 , alk phos 55. Troponin I less than 0.03. 32. Total protein 6.7, albumin 3.6, lipase 24 . B12 of 344, which is normal. TSH low at 0.22. Free T4 normal at 0.8. UA was 3+ blood, no rbc's. test otherwise negative. PT of 11.1, INR of 0.94. White count from 8.[address] eroids. Hemoglobin down from 8.3 to 7.6, MCV of 69, platelet count of 210, polys of 94%, 72%, lymphocytes 4%, monocytes 2%. Tox positive for amphetamines, on Adderall medication. Hepatitis panel pending. Impression: 1.Severe iron deficiency anemia. Hemoglobin 7.6, MCV of 69, ferritin 2.2, iron saturation too low t o calculate less than 1. 2.Rhabdomyolysis, probable with some blood noted in the UA, but no rbc's. The patient has some mild muscle pains. 3.Alcohol abuse. Alcohol level 38 mg/dL now last night, but also drank some beers recent ly with she reports long time and history of alcohol use. 4.Dehydration. 5.Possible delirium tremens, agitation, improved with Xanax, but also with Versed given at bedside t trisha. 6.History of colon polyps. Last colonoscopy 7 years ago on a repeat colonoscopy cancer i n maternal grandfather and maternal great grandmother and mother has history of colon polyps as well. 7.Midepigastric pain radiates to her back. We will need to investigate with EGD, also assess with o ther modalities as indicated. 8.History of peptic ulcer disease with anastomosis of gastric bypass surgery in the past. 9.Upper respiratory infection with possible bronchitis, pneumonia is probably atypical, shortness of breath. O2 saturation 84% prior to admission, is improved on antibiotics and IV steroids in the hos pital. Recommendation: 1.Serial H and H and transfuse p.r.n. 2.Two units of packed RBCs now. 3.Proceed with EGD and colonoscopy after hemoglobin has increased from 7.6 to above 8. 4.P.r.n. benzodiazepines, delirium tremens precautions and Librium t.i.d. start at 10 mg and increas e as needed. 5.Chantix on discharge to discontinue smoking. 6.Continue to monitor O2 sats, probably q.6h every shift. Continue antibiotics. WES/MONA Voice ID: [id number] Report ID: [id number]
[2017-12-16] MEDS: NA CHLORIDE 0.9% 1,000 ML IV SCH ×2 (09:41)
[2017-12-16] MEDS ORDERED: EPINEPHRINE/PF 1 MG/ML AMP ONE (10:30)
[2017-12-16] MEDS ORDERED: Ringers Lactate 0 ML IV ONE (10:30)
[2017-12-16] MEDS ORDERED: Ringers Lactate 1,000 ML IV ONE (10:31)
[2017-12-16] MEDS ORDERED: MIDAZOLAM HCL 2 MG/2 ML INJ ONE (10:36)
[2017-12-16] MEDS ORDERED: PROPOFOL 200 MG/20 ML VIAL IV ONE ×2 (10:36→11:59)
[2017-12-16] MEDS ORDERED: LIDOCAINE 1% MPF 5 ML VIAL ONE (10:36)
--- NOTE | 2017-12-16 11:50 | PN ---
Date of Progress Note: 12/16/2017 Subjective: The patient is seen and examined, chart reviewed, and case discussed with RN. The patie nt had a poor prep yesterday and will be going for repeat colonoscopy today. The patient otherwise d enies any nausea or vomiting. Still says she has a headache. Review of Systems: Negative except as above. Medications: Reviewed. Physical Examination: Vital Signs: Temperature 98.3, heart rate 71, blood pressure 136/96, respirations 16, O2 98% on room air. General: Awake, alert, oriented x3, in some mild distress due to pain. CV: S1, S2. Regular rate and rhythm. Peripheral pulses present. Respiratory: Clear to auscultation bilaterally. No wheezing. Gastrointestinal: Abdomen is soft, nontender, and nondistended. Positive bowel sounds. No guarding or rigidity. Extremities: No clubbing, cyanosis, or edema. Neurologic: Nonfocal. Laboratory Data: Sodium 138, potassium 4.2, chloride 107, CO2 26, BUN 5, creatinine 0.54, glucose 10 1, calcium 9, magnesium 2.2. WBC 14.2, H and H 10.5 and 35, platelets 231. Assessment And Plan: A 42-year-old female with: 1.Acute dyspnea, likely related to chronic obstructive pulmonary disease with bronchitis. Zithromax discontinued. Appreciate Pulmonology input. Continue breathing treatments. Steroids being weaned. 2.Chronic obstructive pulmonary disease with acute exacerbation. Continue p.o. steroids and nebuliz er treatments. 3.Nicotine dependence with cigarette smoking. Counseled. 4.Alcohol abuse. The patient educated. 5.Generalized anxiety disorder. Suggest weaning off alprazolam as an outpatient. The patient recom mended to have Psychiatry outpatient visit. 6.Attention deficit hyperactivity disorder. Continue Adderall. 7.Iron deficiency anemia. The patient has received IV iron infusion. H and H are improved. We yossi l continue to monitor. Transfuse as needed. The patient has received EGD and colonoscopy. Going fo r repeat colonoscopy today by Dr. Palomares. 8.Ulcer. We will continue PPI. Likely cause of bleed. 9.History of gastric bypass surgery. 10.Dizziness secondary to anemia. Will ambulate with assist. 11.Acute dehydration, improved with IV fluids. 12.Uremia, resolved. Appreciate Dr. Del Toro's input. Echocardiogram done, shows normal EF 78%. No mitral valve prolapse. No wall motion abnormality. 13.History of colonic polyps. Will go for repeat colonoscopy today due to poor prep. 14.Headache, improving. Plan: Continue PPI. Anticipate colonoscopy. Monitor H and H. SA/MODL Voice ID: [id number] Report ID: [id number]
[2017-12-16 11:57] VITALS: TEMP 98.2
[2017-12-16 12:03] VITALS: BP 154/97; O2SAT 99
[2017-12-16] MEDS: THIAMINE HCL 100 MG TABLET PO SCH (12:44)
[2017-12-16] MEDS: FOLIC ACID 1 MG TABLET PO SCH (12:44)
--- NOTE | 2017-12-16 15:03 | P.DS ---
Admission Date: 12/13/17 Discharge Date: 12/16/17 Primary Care Provider: HANSEL Still Disposition: ROUTINE DISCHARGE Discharge Condition: GOOD Reason for Admission: Cough congestion shortness of breath Consultations: GI doctor sweat Procedures: EGD and colonoscopy with ulcer found and status post polypectomy - Problems (1) Anxiety Onset Date: 12/16/17 Current Visit: Yes Status: Acute (2) COPD (chronic obstructive pulmonary disease) Onset Date: 12/16/17 Current Visit: Yes Status: Acute Qualifiers: COPD type: COPD with acute exacerbation Qualified Code(s): J44.1 - Chronic obstructive pulmonary disease with (acute) exacerbation (3) Dehydration Onset Date: 12/16/17 Current Visit: Yes Status: Acute (4) Dizziness Onset Date: 12/16/17 Current Visit: Yes Status: Acute (5) Shortness of breath Onset Date: 12/16/17 Current Visit: Yes Status: Acute (6) Alcohol abuse Onset Date: 12/16/17 Current Visit: Yes Status: Chronic (7) Tobacco abuse Onset Date: 12/16/17 Current Visit: Yes Status: Chronic (8) Abdominal pain Onset Date: 04/19/16 Current Visit: No Status: Acute (9) Weakness generalized Onset Date: 04/19/16 Current Visit: No Status: Acute (10) Anemia Onset Date: 04/19/16 Current Visit: No Status: Chronic Qualifiers: Anemia type: iron deficiency Iron deficiency anemia type: inadequate dietary iron intake Qualified Code(s): D50.8 - Other iron deficiency anemias Brief History of Present Illness: FROM H AND P 42-year-old female present emergency room with multiple complaints including dizziness, cough and congestion and shortness of breath. The patient reports that she has been having dizziness over the past 2 weeks. She also reports cough and congestion for the past week. Last week she went to see her PCP. She received 2 doses of Rocephin and IM steroids due to possible bronchitis. She did not improve. She eventually got antibiotics-Augmentin as an outpatient. Since that time she has been having increasing shortness of breath. She reports some dizziness with pain to the left ear. She had some mild nausea. She denies any vomiting. No diarrhea as noted. Some constipation noted. Patient reports a history of anemia, attention deficit disorder and insomnia. She admits to tobacco and alcohol abuse. In the ER the patient was evaluated. The patient was given multiple nebulized treatments with IV steroids. Initial white count 8.8, hemoglobin 8.3. Electrolytes appeared unremarkable. Alcohol level was at 38. CT angiogram showed no pulmonary embolism or infection. Due to the nature the findings and persistent shortness of breath the patient was admitted for observation. Hospital Course: Patient is a 42-year-old female who came into the hospital with shortness of breath and was also found to be anemic. Patient had COPD exacerbation she was started on breathing treatments and steroids patient also had some drop in her hemoglobin and a GI was consulted. Patient was seen by Dr. heath and had colonoscopy and EGD done colonoscopy had to be repeated due to poor prep. Patient was found to have ulcers and polyp which was resected patient's hemoglobin improved she was given multiple iron infusions she found to be iron deficient. Patient also had elevated alcohol have blood level and was counseled against drinking and counseled to discontinue smoking. Patient voiced understanding. Patient was started on folate thiamine and Ativan p.r.n.. Patient did not have any acute delirium tremens or alcohol withdrawal. Patient did well overall her symptoms improved her weakness resolved her headache which was likely related to low hemoglobin and dehydration also improved. Patient was then cleared for discharge from GI standpoint and was sent home in a stable condition Vital Signs/Physical Exam: Temp Pulse Resp BP Pulse Ox 98.2 F 63 16 154/97 H 94 12/16/17 12:15 12/16/17 12:15 12/16/17 12:15 12/16/17 12:15 12/16/17 08:00 Other Physical/Emotional Findings: FOR PHYSICAL EXAM FINDINGS PLEASE SEE PROGRESS NOTE DICTATED ON DAY OF DISCHARGE Laboratory Data at Discharge: WBC 14.2 K/uL (4.3-10.9) H D 12/16/17 05:33 Hgb 10.5 g/dL (12.0-15.0) L 12/16/17 05:33 Hct 35.0 % (36.0-45.0) L D 12/16/17 05:33 Plt Count 231 K/uL (152-406) 12/16/17 05:33 PT 11.1 SECONDS (9.5-12.5) 12/13/17 08:45 INR 0.94 12/13/17 08:45 Sodium 138 mEq/L (135-145) 12/16/17 05:33 Potassium 4.2 mEq/L (3.6-5.0) 12/16/17 05:33 BUN 5 mg/dL (6-20) L 12/16/17 05:33 Creatinine 0.54 mg/dL (0.44-1.00) 12/16/17 05:33 Glucose 101 mg/dL (65-120) 12/16/17 05:33 Magnesium 2.2 mg/dL (1.8-2.5) 12/16/17 05:33 Total Bilirubin 0.4 mg/dL (0.3-1.2) 12/13/17 08:45 AST 18 IU/L (10-42) 12/13/17 08:45 ALT 13 IU/L (10-60) 12/13/17 08:45 Alkaline Phosphatase 51 IU/L (42-121) 12/13/17 08:45 B-Natriuretic Peptide 32 pg/ml (<=100) 12/13/17 08:45 Lipase 24 U/L (22-51) 12/13/17 08:45 Home Medications: Dextroamphetamine/Amphetamine [Adderall 20 mg Tablet] 20 mg PO TID 04/18/16 Alprazolam 1 tab PO BEDTIME 12/13/17 Albuterol Sulfate [Proair Hfa] 8.5 gm IH Q4HR PRN #1 hfa.aer.ad 12/16/17 Docusate [Colace Cap*] 100 mg PO BID PRN #30 cap 12/16/17 Ferrous Sulfate 325 mg PO DAILY #30 tablet. 12/16/17 Folic Acid 1 mg PO DAILY #30 tablet 12/16/17 Pantoprazole [Protonix Tab] 40 mg PO BID #60 tab 12/16/17 Prednisone [Deltasone*] 10 mg PO BID #20 tab 12/16/17 Thiamine HCl [Vitamin B-1*] 100 mg PO DAILY #30 tablet 12/16/17 Tiotropium Goodrich [Spiriva] 1 spray IH DAILY #1 cap.w.dev 12/16/17 New Medications: Albuterol Sulfate [Proair Hfa] 8.5 gm IH Q4HR PRN #1 hfa.aer.ad PRN Reason: Wheezing Docusate [Colace Cap*] 100 mg PO BID PRN #30 cap PRN Reason: Constipation Ferrous Sulfate 325 mg PO DAILY #30 tablet. Folic Acid 1 mg PO DAILY #30 tablet Pantoprazole [Protonix Tab] 40 mg PO BID #60 tab Prednisone [Deltasone*] 10 mg PO BID #20 tab Thiamine HCl [Vitamin B-1*] 100 mg PO DAILY #30 tablet Tiotropium Goodrich [Spiriva] 1 spray IH DAILY #1 cap.w.dev Patient Discharge Instructions: f/up w PCP in 2-3 days. f/up w GI Dr. Palomares in 2 weeks. Return to ER for worsening condition Diet: Regular Activity: Ad gagan Time spent managing pt's care (in minutes): 35
[2017-12-16] MEDS: SOD FERRIC GLUC COMPLX/SUCROSE 125 MG in NA CHLORIDE 0.9% 100 ML IV SCH (17:23)
--- NOTE | 2017-12-16 18:00 | RAD REPORT ---
EXAM DESCRIPTION: RAD - Small Bowel Series - 12/16/2017 4:43 pm CLINICAL HISTORY: Occult GI bleed, prior cholecystectomy, prior intussusception with repair, prior g astric bypass COMPARISON: CT study April 2016 FINDINGS: Leather Sponger film shows a nonspecific bowel gas pattern. No obstruction or free air. No suspiciou s calcifications. Prominent air throughout nondilated large and small bowel. This air pattern is not unexpected given a colonoscopy performed earlier in the day. Numerous phleboliths are present. Gastric bypass surgical changes are present. The contrast opacified lumen of the stomach shows no mas s or mucosal thickening. No delay in transit of contrast into the small bowel. Small bowel is normal in diameter with no mucosal fold thickening. No intrinsic or extrinsic mass identifiable. Terminal il eum has normal appearance. Transit time to the colon is 1 hour 30 minutes.. IMPRESSION: Normal small bowel series.
== END 2017-12-16 17:20 | disposition home or self-care (01) | DRG 191 ==
LOC: ER 08:08 → OBSVTOIN 11:23 → ERHOLD 11:23 → 4TH 12:48
PROVIDERS: ADMIT Family Medicine; ATTEND Family Medicine
PROC: 0DB68ZX Excision of Stomach, Via Natural or Artificial Opening Endoscopic, Diagnostic (ICD-10-PCS; 2017-12-15)
PROC: 0DBM8ZX Excision of Descending Colon, Via Natural or Artificial Opening Endoscopic, Diagnostic (ICD-10-PCS; 2017-12-16)
PROC: 0DBL8ZZ Excision of Transverse Colon, Via Natural or Artificial Opening Endoscopic (ICD-10-PCS; principal; 2017-12-16 12:00)
DX: J44.1 Chronic obstructive pulmonary disease with (acute) exacerbation (principal); K63.3 Ulcer of intestine; M62.82 Rhabdomyolysis; K63.5 Polyp of colon; D50.9 Iron deficiency anemia, unspecified; K64.8 Other hemorrhoids; K29.70 Gastritis, unspecified, without bleeding; E86.0 Dehydration; K25.9 Gastric ulcer, unspecified as acute or chronic, without hemorrhage or perforation; G47.00 Insomnia, unspecified; F41.9 Anxiety disorder, unspecified; F98.8 Other specified behavioral and emotional disorders with onset usually occurring in childhood and adolescence; F10.10 Alcohol abuse, uncomplicated; D50.0 Iron deficiency anemia secondary to blood loss (chronic); F90.9 Attention-deficit hyperactivity disorder, unspecified type; F17.200 Nicotine dependence, unspecified, uncomplicated
CPT/HCPCS: 36415; 70450; 71045; 71046; 71275; 74250; 80048; 80074; 80076; 80307; 80320; 81003; 81015; 81025; 82550; 82553; 82607; 82728; 82746; 82962; 83540; 83690; 83735; 83880; 84439; 84443; 84466; 84484; 85014; 85018; 85025; 85610; 86850; 86900; 86901; 88305; 88312; 93005; 93306; 94640; 96365; 96375; 99285; C9113; J0171; J0456; J0696; J1100; J1650; J2250; J2405; J2550; J2765; J2916; J2920; J3010; J3420; J3475; J7030; J7605; P9016; Q9967

== ENCOUNTER 2019-09-07 18:32 | Observation (INO) | payer SELFPAY ==
--- OUTSIDE RECORDS SUMMARY | 2019-09-07 18:35 | XMS REPORT ---
:1975 [facility] Address [address] [place] [address] Dr. Figueroa [address] [place] [id number] Care Team Providers Name Role Phone Unavailable Unavailable Unavailable Payers Payer Name Policy Type Policy Number Effective Date Expiration Date Problems This patient has no known problems. Allergies, Adverse Reactions, Alerts Allergy Allergy Status Severity Reaction(s) Onset Inactive Treating Comments Name Type Date Date Clinician No Known DA Active U 2012-12 Allergies -16 00:00:0 0 Medications This patient has no known medications.
[2019-09-07] MEDS ORDERED: NA CHLORIDE 0.9% 500 ML ONE (19:39)
[2019-09-07 19:46] LABS: Absolute Lymphocytes (CBC) 1.8 K/uL (0.7-4.9); Basophils % 2.2 % (0-1.3); Hematocrit 29.6 % (36.0-45.0); RBC Red Blood Cell Count 4.43 M/uL (3.86-4.86)
[2019-09-07] MEDS ORDERED: FENTANYL CITR 100 MCG/2 ML ONE (19:48)
[2019-09-07] MEDS ORDERED: ONDANSETRON 4 MG/2 ML VIAL ONE ×2 (19:49→20:33)
[2019-09-07 19:53] LABS: Protime INR 0.99
--- NOTE | 2019-09-07 20:06 | RAD REPORT ---
EXAM DESCRIPTION: Kaley Single View09/07/2019 7:59 pm CLINICAL HISTORY: Chest pain COMPARISON: 2017 FINDINGS: The lungs appear clear of acute infiltrate. The heart is normal size IMPRESSION: No acute abnormalities displayed
[2019-09-07 20:16] LABS: ALT/SGPT 19 U/L (12-78); AST/SGOT 12 U/L (15-37); Albumin 3.6 g/dL (3.4-5.0); Alkaline Phosphatase 75 U/L (45-117); BUN Blood Urea Nitrogen 9 mg/dL (7-18); Bicarbonate 24 mmol/L (21-32); Bilirubin Direct < 0.1 mg/dL (0-0.2); Bilirubin Total 0.3 mg/dL (0.2-1.0); Glucose Level 97 mg/dL (74-106); Magnesium 2.1 mg/dL (1.8-2.4); NT PRO-BNP 192 pg/mL (<125); Protein, Total 7.4 g/dL (6.4-8.2); Sodium Level 142 mmol/L (136-145); Troponin (Emerg Dept Use Only) < 0.02 ng/mL (0.0-0.045)
[2019-09-07] MEDS ORDERED: FAMOTIDINE 20 MG/2 ML VIAL IV ONE (20:33)
[2019-09-07 20:47] LABS: Blood Morphology Comment NOTED (NOT SEEN); Hypochromasia 2+; Platelet Estimate ADEQ; Urine White Blood Cell Casts OK
--- NOTE | 2019-09-07 21:10 | ER ---
Nurse's Notes [facility] Name: Valery Garner Age: 44 yrs Sex: Female : 1975 Arrival Date: 09/07/2019 Time: 18:33 Bed 15 Private MD: Diagnosis: Chest pain, unspecified;Anemia, unspecified Presentation: 09/07 18:41 Presenting complaint: Patient states: i have been in bed all day because i started tw2 feeling like i had a stomach issue, like i ate something, then i took something to sleep and when i would wake up, it is right under my LEFT breast and it mccormack all the way to my back. Presenting complaint: Patient states: i am also getting nauseated. Transition of care: patient was not received from another setting of care. Onset of symptoms was September 07, 2019. Risk Assessment: Do you want to hurt yourself or someone else? Patient reports no desire to harm self or others. Initial Sepsis Screen: Does the patient meet any 2 criteria? No. Patient's initial sepsis screen is negative. Does the patient have a suspected source of infection? Yes:. Care prior to arrival: None. 18:41 Method Of Arrival: Wheelchair tw2 18:41 Acuity: SANJAY 3 tw2 Triage Assessment: 18:43 General: Appears uncomfortable, Behavior is anxious. Pain: Complains of pain in chest tw2 and abdomen. Cardiovascular: Reports chest pain. HORSEBACK EXCAVATOR: 18:43 LMP N/A - Irregular menses tw2 Historical: - Allergies: 18:45 "pain medicine gives me an anxiety attack"; tw2 - Home Meds: 18:45 alprazolam 1 mg Oral tab [Active]; Adderall XR 20 mg Oral cp24 1 cap twice a day tw2 [Active]; BuSpar Oral 5 mg daily [Active]; - PMHx: 18:45 ADD/ADHD; Anxiety; bleeding ulcer; tw2 - PSHx: 18:45 Cholecystectomy; Abdominal plasty; Breast augmentation; Gastric Bypass; ; tw2 - Family history:: not pertinent. Screenin:33 Abuse screen: Denies threats or abuse. Nutritional screening: No deficits noted. jb4 Tuberculosis screening: No symptoms or risk factors identified. Fall Risk IV access (20 points). Total Aparicio Fall Scale indicates No Risk (0-24 pts). Assessment: 19:33 General: Appears in no apparent distress. uncomfortable, Behavior is cooperative, jb4 anxious, crying, restless. Pain: Complains of pain in left breast Pain radiates to left subscapular area Pain currently is 8 out of 10 on a pain scale. Quality of pain is described as burning, It feels like a gun shot. Neuro: Level of Consciousness is awake, alert, obeys commands, Oriented to person, place, time, situation. Cardiovascular: Patient's skin is warm and dry. Rhythm is sinus rhythm. Respiratory: Airway is patent Respiratory effort is even, unlabored, Respiratory pattern is regular, symmetrical. GI: Reports nausea. : No signs and/or symptoms were reported regarding the genitourinary system. EENT: No signs and/or symptoms were reported regarding the EENT system. Derm: Skin is intact, Skin is dry, Skin is pale, Skin temperature is warm. Musculoskeletal: Circulation, motion, and sensation intact. Range of motion: intact in all extremities. 19:40 Reassessment: PT states "I can take fentanyl and if I don't get something for pain I am jb4 leaving." provider notified, see [facility] for orders. 21:00 Reassessment: Patient appears in no apparent distress at this time. Patient and/or jb4 family updated on plan of care and expected duration. Pain level reassessed. Patient is alert, oriented x 3, equal unlabored respirations, skin warm/dry/pink. 22:00 Reassessment: Patient appears in no apparent distress at this time. Patient and/or jb4 family updated on plan of care and expected duration. Pain level reassessed. Patient is alert, oriented x 3, equal unlabored respirations, skin warm/dry/pink. Patient states feeling better. 22:40 Reassessment: PT reports increase in pain from 3/10 to 5/10, requesting more jb4 medication, provider notified, no new orders at this time. 22:50 Reassessment: Patient appears in no apparent distress at this time. Patient and/or jb4 family updated on plan of care and expected duration. Pain level reassessed. Patient is alert, oriented x 3, equal unlabored respirations, skin warm/dry/pink. Hospitalist is at the bedside. 23:58 Reassessment: Dr. Travon BARDALES, Hospitalist at bedside. Pt states she wants to leave AMA. mw Pt signed AMA form and left ER. Please see [facility] for other charting.. Vital Signs: 18:43 BP 132 / 89; Pulse 86; Resp 19; Temp 98.6(TE); Pulse Ox 98% on R/A; Weight 59.87 kg tw2 (R); Height 5 ft. 3 in. (160.02 cm); Pain 7/10; 19:49 BP 181 / 106; Pulse 79; Resp 18; Pulse Ox 98% on R/A; jb4 20:15 BP 137 / 92; Pulse 72; Resp 18; Pulse Ox 98% on R/A; jb4 21:30 BP 151 / 95; Pulse 66; Resp 16; Pulse Ox 100% on R/A; jb4 22:30 BP 141 / 98; Pulse 73; Resp 18; Pulse Ox 100% on R/A; jb4 18:43 Body Mass Index 23.38 (59.87 kg, 160.02 cm) tw2 ED Course: 18:33 Patient arrived in ED. ds1 18:43 Triage completed. tw2 18:52 Arm band placed on. EKG completed in triage. Results shown to MD. tw2 19:22 Jesse Frye, RN is Primary Nurse. jb4 19:32 Dean Ramirez MD is Attending Physician. sophia 19:33 Patient has correct armband on for positive identification. Placed in gown. Bed in low jb4 position. Call light in reach. Side rails up X 1. seafood packer on. Pulse ox on. NIBP on. 19:33 Initial lab(s) drawn, by me, sent to lab. Inserted saline lock: 20 gauge in right jb4 antecubital area, using aseptic technique. Blood collected. Patient maintains SpO2 saturation greater than 95% on room air. 20:00 XRAY Chest (1 view) In Process Unspecified. EDMS 21:00 CT Aorta for Dissection In Process Unspecified. EDMS 21:07 Merrick Cool is Hospitalizing Provider. sophia 23:08 No provider procedures requiring assistance completed. Patient admitted, IV remains in jb4 place. Administered Medications: 19:40 Drug: NS 0.9% 500 ml Route: IV; Rate: bolus; Site: right antecubital; jb4 20:20 Follow up: Response: No adverse reaction; IV Status: Completed infusion; IV Intake: jb4 500ml 19:54 Drug: Zofran 4 mg Route: IVP; Site: right antecubital; jb4 20:20 Follow up: Response: No adverse reaction jb4 19:56 Drug: fentaNYL (PF) 25 mcg {Note: RASS score 1.} Route: IVP; Site: right antecubital; jb4 20:10 Follow up: Response: No adverse reaction; Pain is decreased; RASS: Alert and Calm (0) jb4 20:38 Drug: Pepcid 20 mg Route: IVP; Site: right antecubital; jb4 20:54 Follow up: Response: No adverse reaction jb4 20:39 Drug: Zofran 4 mg Route: IVP; Site: right antecubital; jb4 20:54 Follow up: Response: No adverse reaction jb4 20:41 Drug: fentaNYL (PF) 50 mcg {Note: Rass score 0.} Route: IVP; Site: right antecubital; jb4 20:53 Follow up: Response: No adverse reaction; Pain is decreased; RASS: Alert and Calm (0) jb4 20:44 Not Given (Other Intervention Used): fentaNYL (PF) 25 mcg IVP once; RASS on ADMIN: jb4 Combtv4, Very Agttd3, Agttd2, Rstlss1, AlertClm0, Drwsy-1, Lt Sdtn-2, Mod Sdtn-3, Dp Sdtn-4, UnArsble-5 23:16 Drug: ProTONIX 40 mg Route: IVP; Site: right antecubital; jb4 Intake: 20:20 IV: 500ml; Total: 500ml. jb4 Outcome: 21:08 Decision to Hospitalize by Provider. sophia 09/08 00:00 Patient left the ED. mw Signatures: Dispatcher [employer] EDMS Clementina Brown RN RN Dean White MD MD cha Sanford, Demi dsRuth Ewing RN RN tw2 Jesse Frye RN RN jb4
--- NOTE | 2019-09-07 21:11 | EDPHYS ---
Physician Documentation [facility] Name: Valery Garner Age: 44 yrs Sex: Female : 1975 Arrival Date: 09/07/2019 Time: 18:33 Bed 15 Private MD: LAURA Physician Dean Ramirez HPI: 09/07 20:22 This 44 yrs old Female presents to ER via Wheelchair with complaints of Chest sophia Pain, Nausea. 20:22 The patient or guardian reports chest pain that is located primarily in the anterior sophia chest wall, left. Onset: 1 day(s) ago. The pain radiates to left back. Associated signs and symptoms: The patient has no apparent associated signs or symptoms. The chest pain is described as sharp. Modifying factors: The symptoms are alleviated by nothing. the symptoms are aggravated by breathing, cough, deep breath, movement. Severity of pain: At its worst the pain was moderate in the emergency department the pain is unchanged. 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 ROS: 20:22 Constitutional: Negative for fever, chills, and weight loss, Eyes: Negative for injury, sophia pain, redness, and discharge, ENT: Negative for injury, pain, and discharge, Neck: Negative for injury, pain, and swelling, Respiratory: Negative for shortness of breath, cough, wheezing, and pleuritic chest pain, Abdomen/GI: Negative for abdominal pain, nausea, vomiting, diarrhea, and constipation, Back: Negative for injury and pain, : Negative for injury, bleeding, discharge, and swelling, MS/Extremity: Negative for injury and deformity, Skin: Negative for injury, rash, and discoloration, Neuro: Negative for headache, weakness, numbness, tingling, and seizure, Psych: Negative for depression, anxiety, suicide ideation, homicidal ideation, and hallucinations, Allergy/Immunology: Negative for hives, rash, and allergies, Endocrine: Negative for neck swelling, polydipsia, polyuria, polyphagia, and marked weight changes. 20:22 Cardiovascular: Positive for chest pain. 20:22 Respiratory: Positive for pleurisy, of the left lateral posterior chest, left lateral anterior chest and left breast, shortness of breath. Exam: 20:22 Constitutional: This is a well developed, well nourished patient who is awake, alert, sophia and in no acute distress. Head/Face: Normocephalic, atraumatic. Eyes: Pupils equal round and reactive to light, extra-ocular motions intact. Lids and lashes normal. Conjunctiva and sclera are non-icteric and not injected. Cornea within normal limits. Periorbital areas with no swelling, redness, or edema. ENT: Nares patent. No nasal discharge, no septal abnormalities noted. Tympanic membranes are normal and external auditory canals are clear. Oropharynx with no redness, swelling, or masses, exudates, or evidence of obstruction, uvula midline. Mucous membranes moist. Neck: Trachea midline, no thyromegaly or masses palpated, and no cervical lymphadenopathy. Supple, full range of motion without nuchal rigidity, or vertebral point tenderness. No Meningismus. Chest/axilla: Normal chest wall appearance and motion. Nontender with no deformity. No lesions are appreciated. Cardiovascular: Regular rate and rhythm with a normal S1 and S2. No gallops, murmurs, or rubs. Normal PMI, no JVD. No pulse deficits. Respiratory: Lungs have equal breath sounds bilaterally, clear to auscultation and percussion. No rales, rhonchi or wheezes noted. No increased work of breathing, no retractions or nasal flaring. Abdomen/GI: Soft, non-tender, with normal bowel sounds. No distension or tympany. No guarding or rebound. No evidence of tenderness throughout. Back: No spinal tenderness. No costovertebral tenderness. Full range of motion. Skin: Warm, dry with normal turgor. Normal color with no rashes, no lesions, and no evidence of cellulitis. MS/ Extremity: Pulses equal, no cyanosis. Neurovascular intact. Full, normal range of motion. Neuro: Awake and alert, GCS 15, oriented to person, place, time, and situation. Cranial nerves II-XII grossly intact. Motor strength 5/5 in all extremities. Sensory grossly intact. Cerebellar exam normal. Normal gait. Psych: Awake, alert, with orientation to person, place and time. Behavior, mood, and affect are within normal limits. Vital Signs: 18:43 BP 132 / 89; Pulse 86; Resp 19; Temp 98.6(TE); Pulse Ox 98% on R/A; Weight 59.87 kg tw2 (R); Height 5 ft. 3 in. (160.02 cm); Pain 7/10; 19:49 BP 181 / 106; Pulse 79; Resp 18; Pulse Ox 98% on R/A; jb4 20:15 BP 137 / 92; Pulse 72; Resp 18; Pulse Ox 98% on R/A; jb4 21:30 BP 151 / 95; Pulse 66; Resp 16; Pulse Ox 100% on R/A; jb4 22:30 BP 141 / 98; Pulse 73; Resp 18; Pulse Ox 100% on R/A; jb4 18:43 Body Mass Index 23.38 (59.87 kg, 160.02 cm) tw2 MDM: 19:34 Patient medically screened. [facility] 20:25 Data reviewed: vital signs, nurses notes, lab test result(s), EKG, radiologic studies, [facility] CT scan, plain films. 09/07 19:24 Order name: Basic Metabolic Panel; Complete Time: 20:26 [facility] 09/07 19:24 Order name: CBC with Diff; Complete Time: 21:03 [facility] 09/07 19:24 Order name: LFT's; Complete Time: 20:26 [facility] 09/07 19:24 Order name: Magnesium; Complete Time: 20:26 [facility] 09/07 19:24 Order name: NT PRO-BNP; Complete Time: 20:26 [facility] 09/07 19:24 Order name: PT-INR; Complete Time: 20:26 [facility] 09/07 19:24 Order name: Troponin (emerg Dept Use Only); Complete Time: 20:26 [facility] 09/07 19:33 Order name: Lipase; Complete Time: 20:26 [facility] 09/07 19:33 Order name: Urine Culture [facility] 09/07 20:09 Order name: CBC Smear Scan; Complete Time: 21:03 [facility]MS 09/07 20:26 Order name: Type And Screen [facility] 09/07 21:06 Order name: Retic Count; Complete Time: 22:03 [facility] 09/07 21:06 Order name: B12 [facility] 09/07 21:06 Order name: Folic Acid,Serum (folate) [facility] 09/07 19:24 Order name: XRAY Chest (1 view); Complete Time: 20:26 [facility] 09/07 19:24 Order name: EKG; Complete Time: 19:26 [facility] 09/07 19:24 Order name: Cardiac monitoring; Complete Time: 19:35 4 09/07 20:22 Order name: CT Aorta for Dissection [facility] 09/07 21:06 Order name: Ferritin [facility] 09/07 21:06 Order name: TIBC [facility] 09/07 21:06 Order name: Troponin (emerg Dept Use Only) [facility] 09/07 19:24 Order name: EKG - Nurse/Tech; Complete Time: 19:36 [facility] 09/07 19:24 Order name: IV Saline Lock; Complete Time: 19:36 [facility] 09/07 19:24 Order name: Labs collected and sent; Complete Time: 19:36 [facility] 09/07 19:24 Order name: O2 Per Protocol; Complete Time: 19:36 [facility] 09/07 19:24 Order name: O2 Sat Monitoring; Complete Time: 19:35 jb4 Administered Medications: 19:40 Drug: NS 0.9% 500 ml Route: IV; Rate: bolus; Site: right antecubital; jb4 20:20 Follow up: Response: No adverse reaction; IV Status: Completed infusion; IV Intake: jb4 500ml 19:54 Drug: Zofran 4 mg Route: IVP; Site: right antecubital; jb4 20:20 Follow up: Response: No adverse reaction jb4 19:56 Drug: fentaNYL (PF) 25 mcg {Note: RASS score 1.} Route: IVP; Site: right antecubital; jb4 20:10 Follow up: Response: No adverse reaction; Pain is decreased; RASS: Alert and Calm (0) jb4 20:38 Drug: Pepcid 20 mg Route: IVP; Site: right antecubital; jb4 20:54 Follow up: Response: No adverse reaction jb4 20:39 Drug: Zofran 4 mg Route: IVP; Site: right antecubital; jb4 20:54 Follow up: Response: No adverse reaction jb4 20:41 Drug: fentaNYL (PF) 50 mcg {Note: Rass score 0.} Route: IVP; Site: right antecubital; jb4 20:53 Follow up: Response: No adverse reaction; Pain is decreased; RASS: Alert and Calm (0) jb4 20:44 Not Given (Other Intervention Used): fentaNYL (PF) 25 mcg IVP once; RASS on ADMIN: jb4 Combtv4, Very Agttd3, Agttd2, Rstlss1, AlertClm0, Drwsy-1, Lt Sdtn-2, Mod Sdtn-3, Dp Sdtn-4, UnArsble-5 23:16 Drug: ProTONIX 40 mg Route: IVP; Site: right antecubital; jb4 Disposition: 09/07/19 21:08 Hospitalization ordered by Merrick Cool for Observation. Preliminary diagnosis are Chest pain, unspecified, Anemia, unspecified. - Bed requested for Telemetry/MedSurg (observation). - Status is Observation. mw - Condition is Fair. - Problem is new. - Symptoms have improved. UTI on Admission? No Signatures: Dispatcher [employer] EDMT Clementina Brown RN RN Dean Ramirez MD MD cha Wise, Tara, RN RN tw2 Jesse Frye RN RN jb4 Corrections: (The following items were deleted from the chart) 21:10 21:07 FERRITIN+C.LAB.BRZ ordered. [facility] 09/08 00:00 09/07 21:08 Hospitalization Ordered by Merrick Cool for Observation. Preliminary mw diagnosis is Chest pain, unspecified; Anemia, unspecified. Bed requested for Telemetry/MedSurg (observation). Status is Observation. Condition is Fair. Problem is new. Symptoms have improved. UTI on Admission? No. sophia
[2019-09-07 21:18] LABS: RBC Red Blood Cell Count 4.43 M/uL (3.86-4.86)
[2019-09-07 22:38] LABS: Ferritin 2.1 ng/mL (8-388); Folic Acid, (Folate) 8.8 ng/mL (3.1-17.5); Transferrin 313 mg/dL (200-360); Troponin (Emerg Dept Use Only) < 0.02 ng/mL (0.0-0.045)
[2019-09-07] MEDS ORDERED: PANTOPRAZOLE 40 MG INJ ONE (23:05)
--- NOTE | 2019-09-07 23:26 | P.HP ---
Certification for Inpatient Patient admitted to: Observation With expected LOS: <2 Midnights Practitioner: I am a practitioner with admitting privileges, knowledge of patient current condition, hospital course, and medical plan of care. Services: Services provided to patient in accordance with Admission requirements found in Title 42 Section 412.3 of the Code of Federal Regulations Patient History Date of Service: 09/07/19 Reason for admission: Epigastric pain History of Present Illness: 44-year-old woman with a history of gastric bypass surgery, peptic ulcer disease , chronic iron deficiency anemia presented emergency department with a complaint of epigastric pain of onset this morning. This was followed by left- sided chest pain. Patient reports feeling pain under her left breast. She rated the pain as 10/10 in severity. Her initial troponin in the ED is negative. EKG demonstrated no ischemic changes. CTA thorax negative for aortic dissection. Her systolic blood pressure was elevated up to 189 in the ED. The patient pain is likely related to peptic ulcer disease. She is placed under observation for chest pain rule out. Allergies No Known Allergies Allergy (Verified 12/13/17 18:17) Home Medications: Dextroamphetamine/Amphetamine [Adderall 20 mg Tablet] 20 mg PO TID 04/18/16 ALPRAZolam [Alprazolam] 1 tab PO BEDTIME 12/13/17 Albuterol Sulfate [Proair Hfa] 8.5 gm IH Q4HR PRN #1 hfa.aer.ad 12/16/17 Docusate [Colace Cap*] 100 mg PO BID PRN #30 cap 12/16/17 Ferrous Sulfate 325 mg PO DAILY #30 tablet.dr 12/16/17 Folic Acid 1 mg PO DAILY #30 tablet 12/16/17 Pantoprazole [Protonix Tab] 40 mg PO BID #60 tab 12/16/17 Thiamine HCl [Vitamin B-1*] 100 mg PO DAILY #30 tablet 12/16/17 Tiotropium [place] [Spiriva] 1 spray IH DAILY #1 cap.w.dev 12/16/17 predniSONE [Deltasone*] 10 mg PO BID #20 tab 12/16/17 - Past Medical/Surgical History Diabetic: No -: Anemia, iron deficiency -: Anxiety disorder -: Tobacco abuse -: Alcohol abuse -: History gastric bypass -: Attention deficit disorder -: Insomnia -: Gastric bypass -: Breast reduction -: C-sections x2 -: Cholecystectomy -: Repair for intussipation and volvulus -: Kandice pereira Psychosocial/ Personal History: The patient is . She has 2 children. 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 - Family History Father -: Hypertension, Lung disease - Social History Alcohol use: Yes CD- Drugs: No Caffeine use: Yes Review of Systems Other: General: No fever, no malaise, no unintentional weight loss. Eyes: No eye discharge, Respiratory: No cough, no shortness of breath. CVS: No palpitation, no lightheadedness. GI: She has nausea but no vomiting, no constipation, no diarrhea. Genitourinary: No dysuria, no urinary frequency, no incontinence, no hematuria. Musculoskeletal: No joint pains, or joint swelling, no gait instability. Neurology: No headache, no asymmetric weakness, no problem with swallowing. Except as documented, all other systems reviewed and negative. Physical Examination - Physical Exam General: Alert, In no apparent distress, Oriented x3 HEENT: PERRLA, Mucous membr. moist/pink Neck: Supple, JVD not distended Respiratory: Clear to auscultation bilaterally, Normal air movement Cardiovascular: No edema, Regular rate/rhythm, Normal S1 S2 Capillary refill: <2 Seconds Gastrointestinal: Normal bowel sounds, Soft and benign, Non-distended, No tenderness Musculoskeletal: No swelling, No erythema Integumentary: No rashes Neurological: Normal speech, Normal strength at 5/5 x4 extr - Studies Laboratory Data (last 24 hrs) 09/07/19 19:33: Lipase 187 09/07/19 19:33: PT 11.7, INR 0.99 09/07/19 19:33: WBC 8.3, Hgb 8.7 L, Hct 29.6 L, Plt Count 243 09/07/19 19:33: Sodium 142, Potassium 4.0, BUN 9, Creatinine 0.66, Glucose 97, Magnesium 2.1, Total Bilirubin 0.3, AST 12 L, ALT 19, Alkaline Phosphatase 75 Assessment and Plan - Problems (Diagnosis) (1) Chest pain Status: Acute (2) Peptic ulcer disease Status: Chronic (3) Iron deficiency anemia Status: Chronic - Plan Place under observation. Trend troponin x3 Start IV Protonix Monitor CBC daily. Transfuse p.r.n. for hemoglobin less than 7. Oral iron therapy GI consult Antiemetics as needed Pain medications as needed. - Advance Directives Does patient have a Living Will: No Does patient have a Durable POA for Healthcare: No
--- NOTE | 2019-09-07 23:39 | P.PN ---
Date of Service: 09/07/19 ER nurse call and informed me that the patient signed out against medical advise and left the hospital.
[2019-09-08 00:26] VITALS: TEMP 98.6
[2019-09-08 00:29] VITALS: O2SAT 100
[2019-09-08 00:31] VITALS: BP 141/98
--- NOTE | 2019-09-08 09:00 | EKG ---
Test Date: 2019-09-07 Test Time: 18:51:39 Commercial Attorney: ERNIE MEASUREMENT RESULTS: Intervals: Rate: 80 [place]: 118 QRSD: 74 QT: 362 QTc: 417 [place]: P: 75 [place]: 118 QRS: 63 T: 59 INTERPRETIVE STATEMENTS: Normal sinus rhythm with sinus arrhythmia Normal ECG Compared to ECG 12/13/2017 16:01:54 Junctional rhythm no longer present Short [place] interval no longer present Right-axis deviation no longer present Electronically Signed On 09-08-19 08:57:53 GRAIN RECEIVER by Tony Del Toro
--- NOTE | 2019-09-08 11:13 | RAD REPORT ---
EXAM DESCRIPTION: CT - Angio Aorta For Dissection - 09/08/2019 2:09 am CLINICAL HISTORY: The patient is 44 years old and is Female; Pain;PE;Dissection TECHNIQUE: Axial computed tomographic angiography images of the chest, abdomen and pelvis with intra venous contrast. Sagittal and coronal reformatted images were created and reviewed. This CT exam was performed using one or more of the following dose reduction techniques: automated exposure cont rol, adjustment of the mA and/or kV according to patient size, and/or use of iterative reconstruction technique. MIP reconstructed images were created and reviewed. COMPARISON: December 13, 2017 FINDINGS: VASCULATURE: Aorta: No acute findings. No aortic aneurysm. No dissection. Pulmonary arteries: Unremarkable as visualized. No pulmonary embolism is identified. Great vessels of aortic arch: No acute findings. No dissection. No arterial occlusion or sig nificant stenosis. Celiac trunk and mesenteric arteries: No acute findings. No occlusion or significant stenosis. Renal arteries: No acute findings. No occlusion or significant stenosis. Iliac arteries: No acute findings. No occlusion or significant stenosis. CHEST: Lungs: Unremarkable. No mass. No consolidation. Pleural space: Unremarkable. No significant effusion. No pneumothorax. Heart: Unremarkable. No cardiomegaly. No significant pericardial effusion. ABDOMEN: Liver: Unremarkable. No mass. Gallbladder and bile ducts: Cholecystectomy No ductal dilation. Pancreas: Unremarkable. No ductal dilation. No mass. Spleen: Unremarkable. No splenomegaly. Adrenals: Unremarkable. No mass. Kidneys and ureters: Unremarkable. No hydronephrosis. No solid mass. Stomach and bowel: Unremarkable. No obstruction. No mucosal thickening. PELVIS: Appendix: No findings to suggest acute appendicitis. Bladder: Unremarkable. No mass. Reproductive: Unremarkable as visualized. CHEST, ABDOMEN and PELVIS: Intraperitoneal space: Unremarkable. No significant fluid collection. No free air. Bones/joints: No acute fracture. No dislocation. Soft tissues: Unremarkable. Lymph nodes: Unremarkable. No enlarged lymph nodes. IMPRESSION: No acute findings. No aortic dissection. No pulmonary embolus. Electronically signed by: Nickolas Carlos MD 09/07/2019 10:08 PM SOLAR ENERGY SALES SPECIALIST Due to temporary technical issues with the PACS/Fluency reporting system, reports are being signed by the in house radiologist as a courtesy to ensure prompt reporting. The interpreting radiologist is f ully responsible for the content of the report.
== END 2019-09-07 23:40 | disposition left against medical advice (07) ==
LOC: ER 18:32 → ERHOLD 23:30
PROVIDERS: ADMIT Internal Medicine; ATTEND Internal Medicine
DX: R07.9 Chest pain, unspecified (principal); K27.7 Chronic peptic ulcer, site unspecified, without hemorrhage or perforation; D50.9 Iron deficiency anemia, unspecified; Z53.29 Procedure and treatment not carried out because of patient's decision for other reasons; Z98.84 Bariatric surgery status
CPT/HCPCS: 36415; 71045; 71275; 74175; 80048; 80076; 82607; 82728; 82746; 83540; 83690; 83735; 83880; 84466; 84484; 85025; 85044; 85610; 86850; 86900; 86901; 93005; 96361; 96374; 96375; 99285; C9113; G0378; J2405; J3010; J7040; Q9967

== ENCOUNTER 2019-11-12 22:55 | Observation (INO) | payer BC, SELFPAY ==
--- OUTSIDE RECORDS SUMMARY | 2019-11-12 22:57 | XMS REPORT ---
:1975 [facility] Address [address] [place] [address] [address]. [address] [place] [address] Care Team Providers Name Role Phone Unavailable [...]
[2019-11-12] MEDS ORDERED: TETANUS & DIPHTHERIA TOX,ADULT 0.5 ML VIAL ONE (23:31)
[2019-11-12] MEDS ORDERED: NA CHLORIDE 0.9% 1,000 ML ONE (23:31)
[2019-11-12 23:59] LABS: Absolute Lymphocytes (CBC) 2.2 K/uL (0.7-4.9); Basophils % 1.3 % (0-1.3); Hematocrit 26.2 % (36.0-45.0); Lymphocytes % 27.7 % (15.3-44.8); MPV 9.1 fL (7.6-11.3); RBC Red Blood Cell Count 3.94 M/uL (3.86-4.86)
[2019-11-13 00:11] LABS: Protime INR 0.97
[2019-11-13 00:19] LABS: ALT/SGPT 21 U/L (12-78); AST/SGOT 15 U/L (15-37); Albumin 3.7 g/dL (3.4-5.0); Alkaline Phosphatase 64 U/L (45-117); BUN Blood Urea Nitrogen 12 mg/dL (7-18); Bicarbonate 22 mmol/L (21-32); Bilirubin Direct < 0.1 mg/dL (0-0.2); Bilirubin Total 0.3 mg/dL (0.2-1.0); Glucose Level 91 mg/dL (74-106); Magnesium 2.2 mg/dL (1.8-2.4); NT PRO-BNP 50 pg/mL (<125); Protein, Total 7.2 g/dL (6.4-8.2); Sodium Level 141 mmol/L (136-145); Troponin (Emerg Dept Use Only) < 0.02 ng/mL (0.0-0.045)
--- NOTE | 2019-11-13 00:24 | EDPHYS ---
Physician Documentation [facility] Name: Valery Garner Age: 44 yrs Sex: Female : 1975 Arrival Date: 11/12/2019 Time: 22:57 Bed 3 Private MD: ED Physician Dean Ramirez HPI: 11/12 00:17 This 44 yrs old Female presents to ER via Wheelchair with complaints of Fall sophia Injury, Laceration To Head. 00:17 Details of fall: The patient fell from an upright position, while standing. Onset: The sophia symptoms/episode began/occurred just prior to arrival. Associated injuries: The patient sustained injury to the head. Severity of symptoms: At their worst the symptoms were mild, in the emergency department the symptoms are unchanged. The patient has experienced similar episodes in the past, a few times. 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 - Social history:: Smoking status: Reported history of juuling and/or vaping. Patient uses alcohol, only on a social basis. Patient/guardian denies using street drugs. ROS: 11/12 00:17 Constitutional: Negative for fever, chills, and weight loss, Eyes: Negative for injury, sophia pain, redness, and discharge, ENT: Negative for injury, pain, and discharge, Neck: Negative for injury, pain, and swelling, Cardiovascular: Negative for chest pain, palpitations, and edema, Respiratory: Negative for shortness of breath, cough, wheezing, and pleuritic chest pain, Abdomen/GI: Negative for abdominal pain, nausea, vomiting, diarrhea, and constipation, Back: Negative for injury and pain, : Negative for injury, bleeding, discharge, and swelling, MS/Extremity: Negative for injury and deformity, Psych: Negative for depression, anxiety, suicide ideation, homicidal ideation, and hallucinations, Allergy/Immunology: Negative for hives, rash, and allergies, Endocrine: Negative for neck swelling, polydipsia, polyuria, polyphagia, and marked weight changes, Hematologic/Lymphatic: Negative for swollen nodes, abnormal bleeding, and unusual bruising. Skin: Positive for pallor. Exam: 00:17 Constitutional: This is a well developed, well nourished patient who is awake, alert, sophia and in no acute distress. Head/Face: Normocephalic, atraumatic. Eyes: Pupils equal round and reactive to light, extra-ocular motions intact. Lids and lashes normal. Conjunctiva and sclera are non-icteric and not injected. Cornea within normal limits. Periorbital areas with no swelling, redness, or edema. ENT: Nares patent. No nasal discharge, no septal abnormalities noted. Tympanic membranes are normal and external auditory canals are clear. Oropharynx with no redness, swelling, or masses, exudates, or evidence of obstruction, uvula midline. Mucous membranes moist. Neck: Trachea midline, no thyromegaly or masses palpated, and no cervical lymphadenopathy. Supple, full range of motion without nuchal rigidity, or vertebral point tenderness. No Meningismus. Chest/axilla: Normal chest wall appearance and motion. Nontender with no deformity. No lesions are appreciated. Cardiovascular: Regular rate and rhythm with a normal S1 and S2. No gallops, murmurs, or rubs. Normal PMI, no JVD. No pulse deficits. Respiratory: Lungs have equal breath sounds bilaterally, clear to auscultation and percussion. No rales, rhonchi or wheezes noted. No increased work of breathing, no retractions or nasal flaring. Abdomen/GI: Soft, non-tender, with normal bowel sounds. No distension or tympany. No guarding or rebound. No evidence of tenderness throughout. Back: No spinal tenderness. No costovertebral tenderness. Full range of motion. Female : Normal external genitalia. MS/ Extremity: Pulses equal, no cyanosis. Neurovascular intact. Full, normal range of motion. Neuro: Awake and alert, GCS 15, oriented to person, place, time, and situation. Cranial nerves II-XII grossly intact. Motor strength 5/5 in all extremities. Sensory grossly intact. Cerebellar exam normal. Normal gait. 00:17 Skin: Appearance: Color: pale, Temperature: normal temperature, Moisture: normal moisture, petechiae, not noted, ecchymosis, not noted. Vital Signs: 11/11 23:00 BP 136 / 95; Pulse 80; Resp 18; Temp 97.7(O); Pulse Ox 100% on R/A; Weight 62.6 kg (R); fc Height 5 ft. 3 in. (160.02 cm) (R); Pain 7/10; 11/12 00:00 BP 131 / 80; Pulse 85; Resp 17; Pulse Ox 98% on R/A; rr5 01:00 BP 123 / 96; Pulse 69; Resp 16; Pulse Ox 98% on R/A; rr5 02:00 BP 121 / 85; Pulse 65; Resp 16; Temp 98; Pulse Ox 99% on R/A; rr5 11/11 23:00 Body Mass Index 24.45 (62.60 kg, 160.02 cm) fc Cleo Coma Score: 11/11 23:00 Eye Response: spontaneous(4). Verbal Response: oriented(5). Motor Response: obeys fc commands(6). Total: 15. Trauma Score (Adult): 23:00 Eye Response: spontaneous(1); Verbal Response: oriented(1); Motor Response: obeys fc commands(2); Systolic BP: > 89 mm Hg(4); Respiratory Rate: 10 to 29 per min(4); Cleo Score: 15; Trauma Score: 12 Laceration: 11/12 00:24 Wound Repair of 3cm ( 1.2in ) subcutaneous laceration to scalp and occipital area. sophia Linear shaped.. Distal neuro/vascular/tendon intact. Anesthesia: NONE with 0 mls of NONE. Wound prep: Simple cleansing by hi. Skin closed with 4 [place] using staple gun. Dressed with pressure dressing. Patient tolerated well. MDM: 11/11 23:08 Patient medically screened. [facility] 11/12 00:20 Data reviewed: vital signs, nurses notes, lab test result(s), EKG, radiologic studies, [facility] CT scan, plain films. 11/11 23:23 Order name: Basic Metabolic Panel [facility] 11/11 23:23 Order name: CBC with Diff [facility] 11/11 23:23 Order name: LFT's [facility] 11/11 23:23 Order name: Magnesium [facility] 11/11 23:23 Order name: NT PRO-BNP [facility] 11/11 23:23 Order name: PT-INR [facility] 11/11 23:23 Order name: Troponin (emerg Dept Use Only) [facility] 11/11 23:23 Order name: Urine Culture [facility] 11/11 23:23 Order name: Type And Screen [facility] 11/12 00:16 Order name: Retic Count [facility] 11/12 00:16 Order name: Folic Acid,Serum (folate) [facility] 11/12 00:16 Order name: B12 [facility] 11/12 00:16 Order name: TIBC [facility] 11/12 00:16 Order name: Ferritin [facility] 11/11 23:09 Order name: CT Head C Spine [facility] 11/11 23:23 Order name: XRAY Chest (1 view) [facility] 11/11 23:23 Order name: EKG; Complete Time: 23:24 [facility] 11/12 00:16 Order name: Iron Level [facility] 11/12 00:40 Order name: CONS Pharmacy Consult [facility] 11/12 00:40 Order name: Regular [facility] 11/12 00:41 Order name: CBC with Automated Diff [facility] 11/12 00:41 Order name: CBC with Automated Diff [facility] 11/12 00:41 Order name: CBC with Automated Diff [facility] 11/12 00:47 Order name: CBC Smear Scan [facility] 11/12 01:10 Order name: Packed RBC Leukored [facility] 11/11 23:09 Order name: Suture Tray Setup; Complete Time: 00:33 [facility] 11/11 23:23 Order name: Cardiac monitoring; Complete Time: 23:51 [facility] 11/11 23:23 Order name: EKG - Nurse/Tech; Complete Time: 23:51 [facility] 11/11 23:23 Order name: IV Saline Lock; Complete Time: 23:51 [facility] 11/11 23:23 Order name: Labs collected and sent; Complete Time: 23:51 [facility] 11/11 23:23 Order name: O2 Per Protocol; Complete Time: 23:52 [facility] 11/11 23:23 Order name: O2 Sat Monitoring; Complete Time: 00:33 [facility] 11/12 00:24 Order name: Wound Care; Complete Time: 00:44 [facility] Administered Medications: 11/11 23:51 Drug: NS 0.9% 1000 ml Route: IV; Rate: 1 bolus; Site: left antecubital; rr5 11/12 00:32 Follow up: Response: No adverse reaction; IV Status: Completed infusion; IV Intake: rr5 1000ml 11/11 23:51 Not Given (Patient Refused; had a shot 2 years ago): Tetanus-Diphtheria Toxoid Adult rr5 0.5 ml IM once 11/12 00:35 Drug: Zofran (Ondansetron) 4 mg Route: IVP; Site: left antecubital; rr5 01:00 Follow up: Response: No adverse reaction rr5 00:37 Drug: fentaNYL (PF) 25 mcg {Note: rass 0.} Route: IVP; Site: left antecubital; rr5 01:00 Follow up: Response: No adverse reaction; RASS: Alert and Calm (0) rr5 01:03 Drug: fentaNYL (PF) 25 mcg {Note: rass 0.} Route: IVP; Site: left antecubital; rr5 02:00 Follow up: Response: No adverse reaction; Pain is decreased; RASS: Alert and Calm (0) rr5 Disposition: 11/13/19 00:23 Hospitalization ordered by Mak Godinez for Observation. Preliminary diagnosis are Fall due to bumping against object, Syncope and collapse, Unspecified injury of head, Anemia, unspecified, Laceration without foreign body of other part of head - LEFT SCALP. - Bed requested for Telemetry/MedSurg (observation). - Status is Observation. rr5 - Condition is Stable. - Problem is new. - Symptoms have improved. Signatures: Dispatcher [employer] EDMS Clementina Brown RN RN mw Anderson, Corey, MD MD cha Chretien, Felicia, RN RN fc Roque, Raymond, RN RN rr5 Corrections: (The following items were deleted from the chart) 01:36 00:23 Hospitalization Ordered by Mak Godinez MD for Observation. Preliminary mw diagnosis is Fall due to bumping against object; Syncope and collapse; Unspecified injury of head; Anemia, unspecified; Laceration without foreign body of other part of head - LEFT SCALP. Bed requested for Telemetry/MedSurg (observation). Status is Observation. Condition is Stable. Problem is new. Symptoms have improved. sophia 01:38 01:36 11/13/2019 00:23 Hospitalization Ordered by Mak Godinez MD for Observation. mw Preliminary diagnosis is Fall due to bumping against object; Syncope and collapse; Unspecified injury of head; Anemia, unspecified; Laceration without foreign body of other part of head - LEFT SCALP. Bed requested for Telemetry/MedSurg (observation). Status is Observation. Condition is Stable. Problem is new. Symptoms have improved. erma 02:12 01:38 11/13/2019 00:23 Hospitalization Ordered by Mak Godinez MD for Observation. rr5 Preliminary diagnosis is Fall due to bumping against object; Syncope and collapse; Unspecified injury of head; Anemia, unspecified; Laceration without foreign body of other part of head - LEFT SCALP. Bed requested for Telemetry/MedSurg (observation). Status is Observation. Condition is Stable. Problem is new. Symptoms have improved. erma
--- NOTE | 2019-11-13 00:24 | ER ---
Nurse's Notes [facility] Name: aVlery Garner Age: 44 yrs Sex: Female : 1975 Arrival Date: 11/12/2019 Time: 22:57 Bed 3 Private MD: Diagnosis: Fall due to bumping against object;Syncope and collapse;Unspecified injury of head;Anemia, unspecified;Laceration without foreign body of other part of head-LEFT SCALP Presentation: 11/11 23:00 Chief complaint: Spouse and/or significant other states: that pt was in shower, she got dizzy and fell. Hitting head and had positive LOC. Has laceration to back of scalp that is 2 inches, bleeding controlled and has a headache. Care prior to arrival: Bleeding of injury controlled. Mechanism of Injury: Fall from standing position. Trauma event details: Injury occurred in the [facility], Injury occurred: at home. Injury occurred: November 12, 2019 Injury occurred at: 22:30. 23:00 Acuity: SANJAY 2 fc 23:00 Method Of Arrival: Wheelchair fc 23:00 Coronavirus screen: The patient has NOT traveled to a country currently being monitored fc by the [facility] within the last 14 days. Proceed with normal triage procedures. The patient has NOT had contact with any known and/or suspected case of coronavirus. Proceed with normal triage procedures. Ebola Screen: Patient negative for fever greater than or equal to 101.5 degrees Fahrenheit, and additional compatible Ebola Virus Disease symptoms Patient denies exposure to infectious person. Patient denies travel to an Ebola-affected area in the 21 days before illness onset. Initial Sepsis Screen: Does the patient meet any 2 criteria? No. Patient's initial sepsis screen is negative. Does the patient have a suspected source of infection? No. Patient's initial sepsis screen is negative. Risk Assessment: Do you want to hurt yourself or someone else? Patient reports no desire to harm self or others. 23:00 Onset of symptoms was November 12, 2019. rr5 [place]: 23:00 LMP N/A - Post-menopause fc Trauma Activation: Alert Physician: ED Physician; Name: James; Notified At: 23:11; Arrived At: 23:11 Physician: General Surgeon; Name: ; Notified At: 23:11; Arrived At: Physician: Radiology; Name: Jayson; Notified At: 23:11; Arrived At: 23:13 Physician: Respiratory; Name: ; Notified At: 23:11; Arrived At: Physician: Lab; Name: ; Notified At: 23:11; Arrived At: Historical: - Allergies: 23:21 "pain medicine gives me an anxiety attack"; fc - Home Meds: 23:21 enalapril maleate 10 mg Oral tab 1 tab once daily [Active]; fc - PMHx: 23:21 ADD/ADHD; Anxiety; bleeding ulcer; Anemia; fc - PSHx: 23:21 Cholecystectomy; Abdominal plasty; Breast augmentation; ; Gastric Bypass; Foot fc surg; - Immunization history: Last tetanus immunization: - up to date. - Social history:: Smoking status: Reported history of juuling and/or vaping. Patient uses alcohol, only on a social basis. Patient/guardian denies using street drugs. Screenin:00 Abuse screen: Denies threats or abuse. Tuberculosis screening: No symptoms or risk fc factors identified. 23:19 Nutritional screening: No deficits noted. Fall Risk None identified. fc Primary Survey: 23:00 NO uncontrolled hemorrhage observed. A: The patient is alert. Airway: patent, No rr5 supplemental oxygen in use on arrival. Oral cavity: clear, gag reflex present, Trachea midline. 23:00 Breathing/Chest: Respiratory pattern: regular, Respiratory effort: spontaneous, rr5 unlabored, Breath sounds: clear, bilaterally. Chest inspection: symmetrical rise and fall of the chest. Circulation: Heart tones present. Pulses: palpable right radial artery, right dorsalis pedis artery, left radial artery and left dorsalis pedis artery. Skin color: pink, Skin temperature: warm, dry. Disability Alert. Exposure/Environment: All clothing and personal items were removed. There is no evidence of uncontrolled external bleeding. Obvious injury(ies) are noted at this time: lacerated wound at occipital area. 23:57 Reassessment Airway Airway Patent Breathing/Chest Respiratory pattern Regular rr5 Respiratory effort Spontaneous Unlabored Breath sounds Clear Circulation Heart tones Present Disability Alert. Secondary Survey: 23:00 HEENT: Head Other lacerated wound at occiptal area. rr5 23:00 Gastrointestinal: No deficits noted. : No signs and/or symptoms were reported rr5 regarding the genitourinary system. Musculoskeletal: Circulation, motion, and sensation intact. Capillary refill < 3 seconds. Injury Description: Laceration sustained to occipital area is clean, 0.5 to 2.5 cm long, bleeding moderately. Assessment: 23:00 General: Appears in no apparent distress. uncomfortable, Behavior is calm, cooperative, rr5 appropriate for age. 23:00 Pain: Complains of pain in occipital area Pain Quality of pain is described as aching, rr5 Pain began suddenly, Is intermittent. Neuro: Level of Consciousness is awake, alert, obeys commands, Oriented to person, place, time, situation, Appropriate for age Reports loc. Cardiovascular: Capillary refill < 3 seconds Patient's skin is warm and dry. Respiratory: Airway is patent Respiratory effort is even, unlabored, Respiratory pattern is regular, symmetrical. GI: No signs and/or symptoms were reported involving the gastrointestinal system. : No signs and/or symptoms were reported regarding the genitourinary system. EENT: No signs and/or symptoms were reported regarding the EENT system. Derm: Skin is intact, is healthy with good turgor, Skin temperature is warm Wound noted occipital area Wound is lacerated wound. Musculoskeletal: Circulation, motion, and sensation intact. Capillary refill < 3 seconds. 23:52 Reassessment: Patient appears in no apparent distress at this time. Patient is alert, rr5 oriented x 3, equal unlabored respirations, skin warm/dry/pink. awaiting for CT result. 11/12 00:12 Reassessment: Received critical lab value, HGB 7.8. Dr Ramirez notified. 00:30 Reassessment: Patient appears in no apparent distress at this time. complaining of pain rr5 at occipital area. ED provider aware with order made and carried out. 01:00 Reassessment: Patient appears in no apparent distress at this time. Medication for pain rr5 given as stat dose. pain score 7/10 Patient states symptoms have not improved. 01:24 Reassessment: Patient appears in no apparent distress at this time. Patient is alert, rr5 oriented x 3, equal unlabored respirations, skin warm/dry/pink. for admission and blood transfusion awaiting for result. 02:10 Reassessment: Patient appears in no apparent distress at this time. Patient is alert, rr5 oriented x 3, equal unlabored respirations, skin warm/dry/pink. transferred to room 209, awake alert no complaint made. Vital Signs: 11/11 23:00 BP 136 / 95; Pulse 80; Resp 18; Temp 97.7(O); Pulse Ox 100% on R/A; Weight 62.6 kg (R); fc Height 5 ft. 3 in. (160.02 cm) (R); Pain 7/10; 11/12 00:00 BP 131 / 80; Pulse 85; Resp 17; Pulse Ox 98% on R/A; rr5 01:00 BP 123 / 96; Pulse 69; Resp 16; Pulse Ox 98% on R/A; rr5 02:00 BP 121 / 85; Pulse 65; Resp 16; Temp 98; Pulse Ox 99% on R/A; rr5 03 23:00 Body Mass Index 24.45 (62.60 kg, 160.02 cm) fc Cleo Coma Score: 11/11 23:00 Eye Response: spontaneous(4). Verbal Response: oriented(5). Motor Response: obeys fc commands(6). Total: 15. Trauma Score (Adult): 23:00 Eye Response: spontaneous(1); Verbal Response: oriented(1); Motor Response: obeys fc commands(2); Systolic BP: > 89 mm Hg(4); Respiratory Rate: 10 to 29 per min(4); Ashby Score: 15; Trauma Score: 12 ED Course: 22:57 Patient arrived in ED. jg7 23:00 Patient has correct armband on for positive identification. Bed in low position. Call fc light in reach. Side rails up X 1. 23:00 Patient placed in an exam room, on a stretcher. fc 23:00 Patient maintains SpO2 saturation greater than 95% on room air. fc 23:00 Thermoregulation: warm blanket given to patient. fc 23:08 Dean Ramirez MD is Attending Physician. [facility] 23:10 Juan Camargo RN is Primary Nurse. rr5 23:16 Triage completed. fc 23:19 Pulse ox on. NIBP on. fc 23:46 CT Head C Spine In Process Unspecified. EDMS 23:52 campus monitor on. rr5 23:52 EKG done, by ED staff, reviewed by Dean Ramirez MD. rr5 23:54 Inserted saline lock: 18 gauge in left antecubital area, using aseptic technique. dh4 11/12 00:14 XRAY Chest (1 view) In Process Unspecified. EDMS 00:21 Mak Godinez MD is Hospitalizing Provider. sophia 00:51 Assist provider with laceration repair on occipital area that was 2.5 cm. or less using rr5 corbin. Set up tray. Performed by Dean Ramirez MD Dressed with Neosporin, Patient tolerated well. Patient admitted, IV remains in place. intact, No redness/swelling at site. Administered Medications: 11/11 23:51 Drug: NS 0.9% 1000 ml Route: IV; Rate: 1 bolus; Site: left antecubital; rr5 11/12 00:32 Follow up: Response: No adverse reaction; IV Status: Completed infusion; IV Intake: rr5 1000ml 11/11 23:51 Not Given (Patient Refused; had a shot 2 years ago): Tetanus-Diphtheria Toxoid Adult rr5 0.5 ml IM once 11/12 00:35 Drug: Zofran (Ondansetron) 4 mg Route: IVP; Site: left antecubital; rr5 01:00 Follow up: Response: No adverse reaction rr5 00:37 Drug: fentaNYL (PF) 25 mcg {Note: rass 0.} Route: IVP; Site: left antecubital; rr5 01:00 Follow up: Response: No adverse reaction; RASS: Alert and Calm (0) rr5 01:03 Drug: fentaNYL (PF) 25 mcg {Note: rass 0.} Route: IVP; Site: left antecubital; rr5 02:00 Follow up: Response: No adverse reaction; Pain is decreased; RASS: Alert and Calm (0) rr5 Intake: 00:32 IV: 1000ml; Total: 1000ml. rr5 00:52 PO: 200ml (Water); Total: 1200ml. rr5 Outcome: 00:23 Decision to Hospitalize by Provider. sophia 01:00 for admission awaiting for in patient orders and bed assignmentPatient's length of stay rr5 extended due to 01:52 Admitted to Med/surg accompanied by tech, via stretcher, room 209, with chart, Report rr5 called to [place] 01:52 Condition: stable 01:52 Instructed on the need for admit. 02:12 Patient left the ED. rr5 Signatures: Dispatcher [employer] Dean Patterson MD MD cha Chretien, Felicia, RN RN Juan Solis RN RN rr5 Margi Vicente Amy RN RN Parminder Tsai [facility]
[2019-11-13] MEDS ORDERED: CYANOCOBALAMIN 1000MCG/ML INJ IM ONE (00:30)
[2019-11-13] MEDS ORDERED: DOCUSATE NA 100 MG CAP PO PRN (00:31)
[2019-11-13] MEDS ORDERED: ACETAMINOPHEN 500 MG TAB PO PRN (00:33)
[2019-11-13] MEDS ORDERED: MORPHINE 2 MG/ML SYR IV PRN (00:33)
[2019-11-13] MEDS ORDERED: ONDANSETRON 4 MG/2 ML VIAL IV PRN (00:33)
[2019-11-13] MEDS ORDERED: FENTANYL CITR 100 MCG/2 ML ONE (00:39)
[2019-11-13] MEDS ORDERED: ONDANSETRON 4 MG/2 ML VIAL ONE (00:39)
[2019-11-13 00:45] LABS: RBC Red Blood Cell Count 3.68 M/uL (3.86-4.86)
[2019-11-13 00:47] LABS: Blood Morphology Comment NOTED (NOT SEEN); Hypochromasia 2+; Platelet Estimate ADEQ; White Blood Cell Scan OK
[2019-11-13 00:48] LABS: Elliptocytes 1+
[2019-11-13] MEDS ORDERED: NA CHLORIDE 0.9% 1,000 ML IV SCH ×2 (01:00→04:00)
[2019-11-13 01:27] LABS: Ferritin 2.8 ng/mL (8-388); Folic Acid, (Folate) 7.3 ng/mL (3.1-17.5)
[2019-11-13] MEDS: FENTANYL CITR 100 MCG/2 ML IV PRN ×2 (03:05→10:10)
[2019-11-13 03:15] VITALS: BMI 25.5
[2019-11-13] MEDS ORDERED: SOD FERRIC GLUC COMPLX/SUCROSE 62.5 MG/5 ML VIAL IV ONE ×2 (04:27→04:46)
[2019-11-13] MEDS ORDERED: NA CHLORIDE 0.9% 100 ML ONE (04:30)
[2019-11-13 07:20] LABS: Absolute Lymphocytes (CBC) 2.3 K/uL (0.7-4.9); Hematocrit 24.4 % (36.0-45.0); Lymphocytes % 29.2 % (15.3-44.8); MPV 9.1 fL (7.6-11.3); RBC Red Blood Cell Count 3.65 M/uL (3.86-4.86)
--- NOTE | 2019-11-13 07:23 | P.SSS ---
Patient History Date of Service: 11/13/19 Reason for admission: Anemia; status post fall with scalp laceration History of Present Illness: Patient is a 44-year-old female came to the hospital after falling and suffering a scalp laceration. She was found have a hemoglobin of 7.8. In the emergency room, she had corbin placed on her scalp laceration. She has a history of gastric bypass and has been iron deficient in B12 deficient for a long time. She does take oral supplements but she has never been established with the electrician assistant for IV transfusion. She will be admitted to the hospital for workup for her anemia. She most likely will need iron transfusion. As long as she is not hemodynamically unstable will go ahead and do this along with B12 intramuscularly. She should be able to go home in the morning. Allergies hydrocodone Adverse Reaction (Verified 11/13/19 03:13) Shortness of breath morphine Adverse Reaction (Verified 11/13/19 03:13) Shortness of breath Home Medications: NK [No Home Meds] 11/13/19 - Past Medical/Surgical History Has patient received pneumonia vaccine in the past: Yes Diabetic: No -: Anemia, iron deficiency -: Anxiety disorder -: Tobacco abuse -: Alcohol abuse -: History gastric bypass -: Attention deficit disorder -: Insomnia -: Gastric bypass -: Breast reduction -: C-sections x2 -: Cholecystectomy -: Repair for intussipation and volvulus -: Tummy tujan Psychosocial/ Personal History: The patient is . She has 2 children. 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 - Family History Father -: Hypertension, Lung disease - Social History Smoking Status: Former smoker Alcohol use: Yes CD- Drugs: No Caffeine use: Yes Place of Residence: Home Review of Systems 10-point ROS is otherwise unremarkable Physical Examination - Vital Signs Temperature: 98.2 F Blood Pressure: 120/80 Pulse: 82 Respirations: 18 Pulse Ox (%): 98 - Physical Exam General: Alert, In no apparent distress, Oriented x3 HEENT: PERRLA, Mucous membr. moist/pink, Other (Scalp laceration in the occipital region), EOMI, Sclerae nonicteric Neck: Supple, 2+ carotid pulse no bruit, No LAD, Without JVD or thyroid abnormality Respiratory: Clear to auscultation bilaterally, Normal air movement Cardiovascular: Regular rate/rhythm, Normal S1 S2, No murmurs Gastrointestinal: Normal bowel sounds, Soft and benign, Non-distended, No tenderness Musculoskeletal: No clubbing, No swelling, No tenderness Integumentary: No rashes Neurological: Normal gait, Normal speech, Normal strength at 5/5 x4 extr, Normal tone, Sensation intact, Cranial nerves 3-12 intact, Normal affect Lymphatics: No axilla or inguinal lymphadenopathy - Studies Laboratory Data (last 24 hrs) 11/12/19 23:45: PT 11.5, INR 0.97 11/12/19 23:45: WBC 7.9, Hgb 7.8 L*, Hct 26.2 L, Plt Count 212 11/12/19 23:45: Sodium 141, Potassium 4.0, BUN 12, Creatinine 0.60, Glucose 91, Magnesium 2.2, Total Bilirubin 0.3, AST 15, ALT 21, Alkaline Phosphatase 64 - Diagnosis (Problem(s)) (1) Scalp laceration Current Visit: Yes Status: Acute (2) B12 deficiency anemia Current Visit: Yes Status: Acute (3) Iron deficiency anemia Current Visit: No Status: Chronic Treatment Summary: Patient has been counseled regarding continuing intravenous iron long-term. will go ahead and jig operator IV iron transfusion now and in the morning. Will also give her B12 injection. She will need to be on sublingual B12 going for. She will also need to see a electrician assistant going forward so she can get set up for outpatient iron transfusions. Will repeat her hemoglobin in the morning & as long as it is stable she should be able to go home. - Disposition Disposition: ROUTINE DISCHARGE Condition: GOOD Patient Discharge Instructions: OK TO DC IV AND DC HOME. FOLLOW-UP WITH PRIMARY CARE PROVIDER IN 1-2 WEEKS. RETURN TO THE ER IF SYMPTOMS WORSENS. FOLLOW-UP WITH HEMATOLOGY IN 1-[address] CALL or TEXT [address] MEADOWS AT [phone] IF ANY QUESTIONS REGARDING HOSPITAL STAY. PLEASE CALL THE FLOOR AT IF ANY MEDICATION OR NURSING QUESTIONS. Diet: Regular Activity: Fall precautions Critical Care: No Time Spent Managing Pts Care (In Minutes): 45
--- NOTE | 2019-11-13 07:29 | EKG ---
Test Date: 2019-11-12 Test Time: 23:48:24 Draw Tender: PARTHA MEASUREMENT RESULTS: Intervals: Rate: 71 CO: 146 QRSD: 80 QT: 408 QTc: 443 Hundred: P: 43 CO: 146 QRS: 16 T: 27 INTERPRETIVE STATEMENTS: Normal sinus rhythm Nonspecific ST abnormality Abnormal ECG Compared to ECG 09/07/2019 18:51:39 ST (T wave) deviation now present Sinus arrhythmia no longer present Electronically Signed On 11-13-19 07:27:40 CDT by Tony Del Toro
--- NOTE | 2019-11-13 08:35 | RAD REPORT ---
EXAM DESCRIPTION: RAD - Chest Single View - 11/13/2019 12:00 am CLINICAL HISTORY: COUGH COMPARISON: Portable chest September 07, 2019 TECHNIQUE: AP portable chest image was obtained 11/13/2019 12:00 am . FINDINGS: Lungs are clear. Heart and vasculature are normal. No measurable pleural effusion and no p neumothorax. No acute bony abnormality seen. No acute aortic findings suspected. IMPRESSION: No acute cardiopulmonary process. No significant interval change.
[2019-11-13] MEDS ORDERED: SOD FERRIC GLUC COMPLX/SUCROSE 125 MG in NA CHLORIDE 0.9% 100 ML IV SCH (09:00)
[2019-11-13] MEDS ORDERED: predniSONE 10 MG TAB PO SCH (09:00)
[2019-11-13] MEDS ORDERED: PANTOPRAZOLE 40MG TABLET PO SCH (09:00)
[2019-11-13] MEDS ORDERED: FOLIC ACID 1 MG TABLET PO SCH (09:00)
--- NOTE | 2019-11-13 12:01 | RAD REPORT ---
EXAM DESCRIPTION: CT - CTHCSPWOC - 11/13/2019 5:58 am CLINICAL HISTORY: 44-year-old female with pain status post trauma. COMPARISON: None. TECHNIQUE: CT brain without contrast. This exam was performed according to our departmental dose opt imization program which includes use of automated exposure control, adjustment of the mA and/or kV ac cording to patient size and/or use of iterative reconstruction technique. FINDINGS: The ventricles, sulci, and cisterns are symmetric and unremarkable. The georges-white matte r differentiation is preserved. There is no mass effect, midline shift, intra- or extra-axial fluid collection/acute hemorrhage. The osseous structures are unremarkable. The paranasal sinuses and mastoid air cells are clear. Posterior occipital soft tissue swelling. IMPRESSION: 1. No acute intracranial abnormalities. TECHNIQUE: Cervical spine CT was performed without contrast. Multiplanar reformatted images were pro vided. This exam was performed according to our departmental dose optimization program which includes use of automated exposure control, adjustment of the mA and/or kV according to patient size and/or u se of iterative reconstruction technique. COMPARISON: None. FINDINGS: There is normal alignment of the cervical spine without fracture or subluxation. The facet s are normal in alignment bilaterally. The posterior elements including the spinous processes are int act. Straightening of the cervical spine which may be secondary to positioning for the examination. Morphology and attenuation of the vertebral bodies and intervertebral disk spaces is compatible with mild multilevel degenerative change. Ayzi-av-rndkkeva neuroforaminal narrowing of C5-6 vertebral leve l secondary to posterior osseous spurring. Incidentally noted focus of hypoattenuation within the RIGHT thyroid lobe measures 5 mm. The pre-and paravertebral soft tissues are within normal limits. IMPRESSION: 1. Straightening of the cervical spine which may be secondary to positioning for the exa mination versus spasm. 2. No fracture or acute subluxation. 3. Subcentimeter incidental thyroid nodule. No follow-up imaging is recommended. Reference: J Am Avni Radiol. 2015 Oct;12(2): 143-50 Electronically signed by: Fariha Singer MD 11/12/2019 11:58 PM CDT Due to temporary technical issues with the PACS/Fluency reporting system, reports are being signed by the in house radiologist as a courtesy to ensure prompt reporting. The interpreting radiologist is f ully responsible for the content of the report.
[2019-11-13 12:51] VITALS: BP 110/71; TEMP 98.2
[2019-11-13 16:54] VITALS: O2SAT 99
== END 2019-11-13 17:18 | disposition home or self-care (01) ==
LOC: ER 22:55 → 2ND 11-13 02:00
PROVIDERS: ADMIT Hospitalist; ATTEND Hospitalist
PROC: 0JQ00ZZ Repair Scalp Subcutaneous Tissue and Fascia, Open Approach (ICD-10-PCS; principal; 2019-11-12)
PROC: 30233N1 Transfusion of Nonautologous Red Blood Cells into Peripheral Vein, Percutaneous Approach (ICD-10-PCS; 2019-11-12)
DX: D50.9 Iron deficiency anemia, unspecified (principal); D51.9 Vitamin B12 deficiency anemia, unspecified; S01.01XA Laceration without foreign body of scalp, initial encounter; W18.00XA Striking against unspecified object with subsequent fall, initial encounter; Z98.84 Bariatric surgery status; Z87.891 Personal history of nicotine dependence; R94.31 Abnormal electrocardiogram [ECG] [EKG]
CPT/HCPCS: 12002; 36430; 96361; 93005; 85025 ×2; 80048; 36415; 86900; 83735; 86850; 85610; 85044; 86901; 80076; 85018; 85014; 84484; 82728; 82746; 82607; 83540; 83880; 84466; 70450; 72125; 71045; 90714; 96375; 96374; 99285; J3010 ×3; J2916 ×2; P9016; J7030 ×2; J2405; G0378 ×2; J3420; J7512

== ENCOUNTER 2021-03-03 14:45 | Emergency (ER) | payer BC ==
--- OUTSIDE RECORDS SUMMARY | 2021-03-03 14:54 | XMS REPORT | Continuity of Care Document ---
:[address] [facility] t Address [address] [place] [address] Care Team Providers Name Role Phone Unavailable Unavailable Unavailable Payers Payer Name Policy Type Policy Number Effective Date Expiration Date S ource Problems This patient has no known problems. Allergies, Adverse Reactions, Alerts Allergy Allergy Status Severity Reaction(s) Onset Inactive Treating Comm ents Source Name Type Date Date Clinician No Known DA Active [facility] [place] Medications This patient has no known medications. Procedures This patient has no known procedures. Results This patient has no known results.
[2021-03-03] MEDS ORDERED: LIDOCAINE 1% MPF 5 ML VIAL ONE (16:46)
[2021-03-03] MEDS ORDERED: BUPIVACAINE 0.5% PF 10 ML VIAL ONE (17:00)
[2021-03-03] MEDS ORDERED: LIDOCAINE 1% MPF 30 ML VIAL ONE (17:00)
--- NOTE | 2021-03-03 17:10 | EDPHYS ---
Physician Documentation [facility] Name: Valery Garner Age: 46 yrs Sex: Female : 1975 Arrival Date: 03/03/2021 Time: 14:48 Bed 23 Private MD: ED Physician Nicolas Keith HPI: 03/03 16:38 This 46 yrs old Female presents to ER via Ambulatory with complaints of jmm Laceration To Arm. 16:38 The patient has a laceration related to:. Onset: The symptoms/episode began/occurred jmm acutely, last night. Associated signs and symptoms: Pertinent negatives: deformity, dizziness, heavy bleeding, loss of consciousness, numbness distal to injury, suspected foreign body. The patient has not experienced similar symptoms in the past. Patient states she cut her left arm as she reached into a box of broken glass. Historical: - Allergies: 15:09 Morphine; ll1 15:09 Hydrocodone-Acetaminophen; ll1 15:09 Demerol; ll1 15:09 "pain medicine gives me an anxiety attack"; ll1 - PMHx: 15:09 ADD/ADHD; Anemia; Anxiety; bleeding ulcer; ll1 - PSHx: 15:09 None; ll1 - Immunization history:: Client reports having NOT received the Covid vaccine. Last tetanus immunization: up to date Flu vaccine is up to date. - Social history:: Smoking status: Patient denies any tobacco usage or history of. ROS: 16:38 Constitutional: Negative for fever, chills, and weight loss, Cardiovascular: Negative jmm for chest pain, palpitations, and edema, Respiratory: Negative for shortness of breath, cough, wheezing, and pleuritic chest pain. 16:38 Skin: Positive for laceration(s). 16:38 All other systems are negative. Exam: 16:38 Constitutional: This is a well developed, well nourished patient who is awake, alert, jmm and in no acute distress. Head/Face: atraumatic. Eyes: EOMI, no conjunctival erythema appreciated ENT: Moist Mucus Membranes Neck: Trachea midline, Supple Chest/axilla: Normal chest wall appearance and motion. Cardiovascular: Regular rate and rhythm. No edema appreciated Respiratory: Normal respirations, no respiratory distress appreciated Abdomen/GI: Non distended, soft Back: Normal ROM 16:38 Skin: 6 cm laceration noted to the volar surface of the left forearm, no active bleeding, erythema appreciated. 16:38 Neuro: Orientation: is normal, Mentation: is normal, Memory: is normal. 16:38 Psych: Behavior/mood is pleasant, cooperative. Vital Signs: 15:07 BP 121 / 91; Pulse 88; Resp 16; Temp 97.6; Pulse Ox 98% ; Weight 68.04 kg; Height 5 ft. ll1 3 in. (160.02 cm); Pain 6/10; 17:18 BP 120 / 80; Pulse 80; Resp 16; Pulse Ox 100% on R/A; zb 15:07 Body Mass Index 26.57 (68.04 kg, 160.02 cm) ll1 MDM: 16:38 Patient medically screened. [facility] 17:09 Data reviewed: vital signs, nurses notes. Counseling: I had a detailed discussion with jenna the patient and/or guardian regarding: the historical points, exam findings, and any diagnostic results supporting the discharge/admit diagnosis, the need for outpatient follow up, to return to the emergency department if symptoms worsen or persist or if there are any questions or concerns that arise at home. Administered Medications: No medications were administered Disposition Summary: 03/03/21 17:09 Discharge Ordered Location: Home [facility] Condition: Stable [facility] Diagnosis - Left Arm Laceration [facility] Followup: [facility] - With: Private Physician - When: 7 - 10 days - Reason: Recheck today's complaints, Continuance of care, Staple/Suture removal, Re-evaluation by your physician Discharge Instructions: - Discharge Summary Sheet [facility] - Laceration Care, Adult [facility] Forms: - Medication Reconciliation Form [facility] - Thank You Letter [facility] - Antibiotic Education [facility] - Prescription Opioid Use [facility] Prescriptions: - Doxycycline Monohydrate 100 mg Oral Tablet - take 1 tablet by ORAL route every 12 hours for 10 days; 20 tablet; Refills: 0, [facility] Product Selection Permitted Addendum: 03/06/2021 13:49 Co-signature as Attending Physician, Nicolas Keith MD I agree with the assessment and [facility] plan of care. Signatures: Nicolas Keith MD MD kdr Mickail, Joel, PA PA jmm Lewis, Lynsay, RN RN ll1 Susan Thornton RN RN zb
--- NOTE | 2021-03-03 17:10 | ER ---
Nurse's Notes [facility] Name: Valery Garner Age: 46 yrs Sex: Female : 1975 Arrival Date: 03/03/2021 Time: 14:48 Bed 23 Private MD: Diagnosis: Left Arm Laceration Presentation: 03/03 15:07 Chief complaint: Patient states: Laceration to L FA since 2200 last night. Reached in a [facility] box and accidently got cut with broken glass. Approximate <5 cm laceration, bleeding controlled. Coronavirus screen: Client denies travel out of the [place] in the last 14 days. At this time, the client does not indicate any symptoms associated with coronavirus-19. Ebola Screen: Patient denies travel to an Ebola-affected area in the 21 days before illness onset. Complicating Factors: There are no complicating factors for this patient. Complicating Factors: There are no complicating factors for this patient. Initial Sepsis Screen: Does the patient meet any 2 criteria? No. Patient's initial sepsis screen is negative. Does the patient have a suspected source of infection? Yes: Skin breakdown/wound. Risk Assessment: Do you want to hurt yourself or someone else? Patient reports no desire to harm self or others. Onset of symptoms was March 02, 2021. 15:07 Method Of Arrival: Ambulatory [facility] 15:07 Acuity: SANJAY 4 ll1 Historical: - Allergies: 15:09 Morphine; 1 15:09 Hydrocodone-Acetaminophen; 1 15:09 Demerol; 1 15:09 "pain medicine gives me an anxiety attack"; ll1 - PMHx: 15:09 ADD/ADHD; Anemia; Anxiety; bleeding ulcer; 1 - PSHx: 15:09 None; ll1 - Immunization history:: Client reports having NOT received the Covid vaccine. Last tetanus immunization: up to date Flu vaccine is up to date. - Social history:: Smoking status: Patient denies any tobacco usage or history of. Screenin:32 Abuse screen: Denies threats or abuse. Denies injuries from another. Nutritional zb screening: No deficits noted. Tuberculosis screening: No symptoms or risk factors identified. Fall Risk None identified. Assessment: 16:31 General: Appears uncomfortable, Behavior is calm, cooperative. Pain: Complains of pain zb in dorsal aspect of left forearm Pain currently is 6 out of 10 on a pain scale. Neuro: Level of Consciousness is awake, alert, obeys commands, Oriented to person, place, time, situation. Cardiovascular: Patient's skin is warm and dry. Respiratory: Airway is patent. Derm: Wound noted left arm Wound is laceration. Musculoskeletal: Range of motion: intact in all extremities. Injury Description: Laceration sustained to left arm is clean, 2.6 to 7.5 cm long, bleeding moderately, was sustained 12-24 hours ago. is bleeding a small amount. Vital Signs: 15:07 BP 121 / 91; Pulse 88; Resp 16; Temp 97.6; Pulse Ox 98% ; Weight 68.04 kg; Height 5 ft. ll1 3 in. (160.02 cm); Pain 6/10; 17:18 BP 120 / 80; Pulse 80; Resp 16; Pulse Ox 100% on R/A; zb 15:07 Body Mass Index 26.57 (68.04 kg, 160.02 cm) ll1 ED Course: 14:48 Patient arrived in ED. ds1 15:09 Triage completed. ll1 15:10 Arm band placed on. ll1 16:12 Patient placed in an exam room, on a stretcher. iw 16:18 Janes Duggan PA is PHCP. jenna 16:18 Nicolas Keith MD is Attending Physician. kenneth 16:31 Susan Thornton, MARY KATE is Primary Nurse. zb 16:32 Patient has correct armband on for positive identification. Placed in gown. Bed in low zb position. Call light in reach. Pulse ox on. NIBP on. Door closed. Noise minimized. 16:32 Irrigation of laceration on dorsal aspect of left forearm irrigated with normal saline zb Hibiclens solution Patient tolerated well. 17:18 Assist provider with laceration repair on dorsal aspect of left forearm that was zb between 2.6 to 7.5 cm using sutures. Set up tray. Performed by Janes HAMM Dressed with Kerlix, non-adherent dressing Patient tolerated well. 17:19 Patient did not have IV access during this emergency room visit. zb Administered Medications: No medications were administered Outcome: 17:09 Discharge ordered by . kenneth 17:19 Discharged to home ambulatory, with family. zb 17:19 Condition: stable 17:19 Discharge instructions given to patient, family, Instructed on discharge instructions, follow up and referral plans. medication usage, Demonstrated understanding of instructions, follow-up care, medications, Prescriptions given X 1. 17:23 Patient left the ED. megan Signatures: Janes Duggan PA PA jmm Sanford, Reva ds1 Stacy Page RN RN iw Tatiana Shook RN RN 1 Susan Thornton RN RN zb
[2021-03-03 17:29] VITALS: TEMP 97.6
[2021-03-03 17:31] VITALS: BP 120/80; O2SAT 100
== END 2021-03-03 17:23 | disposition home or self-care (01) ==
LOC: ER 14:45
PROC: 0JQH0ZZ Repair Left Lower Arm Subcutaneous Tissue and Fascia, Open Approach (ICD-10-PCS; principal; 2021-03-03)
DX: S51.812A Laceration without foreign body of left forearm, initial encounter (principal); Z88.5 Allergy status to narcotic agent; Z88.6 Allergy status to analgesic agent
CPT/HCPCS: 99284